=== PATIENT | female | born 1955 ===

== ENCOUNTER 2024-05-22 17:10 | Inpatient (IN) | payer OTHER, SELFPAY ==
--- NOTE | ~2024-05-22 | XR_ITS ---
CLINICAL HISTORY: weakness 1 view chest x-ray Comparison: None Findings: No consolidation or effusion. Normal size heart. No acute fracture. IMPRESSION: 1. No acute findings. This document has been electronically signed by: Opal Kim MD on 05/22/2024 18:18:42
--- NOTE | ~2024-05-22 | CT_ITS ---
EXAMINATION: CT HEAD WITHOUT CONTRAST CLINICAL INFORMATION: Memory impairment. COMPARISON: None available. TECHNIQUE: Contiguous axial imaging was performed from the skull base to vertex without intravenous administration of contrast. This CT examination was performed using dose optimization techniques as appropriate, variously including the following: *Automated exposure control *Adjustment of mA and/or kV according to patient size (this includes techniques or standardized protocols for targeted exams where dose is matched to indication/reason for exam; i.e. extremities or head) *Use of iterative reconstruction technique FINDINGS: There is no evidence of intracranial hemorrhage or extra-axial fluid collection. There is no mass effect, or edema. No CT evidence of acute territorial infarct. Old right basal ganglia infarct, with associated encephalomalacia and ex vacuo dilatation of the right lateral ventricle body and anterior horn. Otherwise ventricles, sulci, and cisterns are normal in size and configuration for patient age. No hydrocephalus. No midline shift. Negative hyperdense MCA sign. Negative insular ribbon sign. Patchy periventricular and deep white matter hypoattenuation is consistent with mild small vessel ischemic changes. Normal pituitary. Globes and orbital contents image normally. No extracranial soft tissue abnormalities. The paranasal sinuses, mastoid air cells, and tympanic cavities are normally aerated. No suspicious bony abnormalities. There are no acute fractures evident. There is hyperostosis frontalis internus. CT/CT head/brain wo IV con IMPRESSION: 1. No acute intracranial abnormality. 2. 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 3. Mild changes of small vessel ischemia. Electronically signed by: Gregory El MD 06/01/2024 04:13 PM EDT
--- NOTE | 2024-05-22 17:15 | ED_ITS ---
HPI - General Adult General Chief complaint: General Medical Stated complaint: unable to ambulate normally Time Seen by Provider: 05/22/24 17:14 Source: patient and EMS Mode of arrival: EMS Limitations: no limitations History of Present Illness ED Provider: Lynne Velazquez PA-C HPI narrative: Patient is a 68 year old assigned female at with a history of CAD, bipolar disorder, neuroma, migraines, stroke with persistent left sided weakness, chronic back pain, and asthma presenting to the emergency department today with weakness and opiate relapse. Patient states that today she stole 2 percocets from her boyfriend who is on them for chronic knee pain. Patient states that she called [facility] and they recommended she come to the hospital to get clean from opiates again. Patient states that she has also had some psychiatric medication adjustments and feel as though she is weaker than usual. Patient denies any dizziness, lightheadedness, abdominal pain, nausea, vomiting, fever, chills, blurry vision, double vision, loss of vision, chest pain, difficulty breathing, shortness of breath, back pain, night sweats, pain with urination, increased urinary frequency, increased urinary urgency, blood in her urine or stool, syncope or a near syncopal episode, recent trauma or falls, bowel incontinence, bladder incontinence, or any other complaints at this time. Relieving factors: none Exacerbating factors: none Associated symptoms: weakness Treatments prior to arrival: none Related Data Home Medications ?Medication ?Instructions ?Recorded ?Confirmed aspirin 81 mg tablet,delayed 81 mg PO DAILY 05/22/24 05/22/24 release hydroxyzine HCl 50 mg tablet 50 mg PO TID anxiety 05/22/24 05/22/24 loperamide 2 mg capsule 4 mg PO DAILY diarrhea 05/22/24 05/22/24 lurasidone 40 mg tablet 40 mg PO BID@0700,1200 05/22/24 05/22/24 [id number] 45 mg-folic 1 cap PO DAILY 05/22/24 05/22/24 acid 800 mcg-vit K 120 mcg capsule (Bariatric Multivitamins) Allergies Allergy/AdvReac Type Severity Reaction Status Date / Time latex [Latex] Allergy Mild THROAT Verified 05/22/24 17:27 CLOSES Sulfa (Sulfonamide Allergy Mild SEVERE Verified 05/22/24 17:27 Antibiotics) HEADACHE, [Sulfa (Sulfonamides)] itching penicillin V Allergy Unknown nauseau,vom Verified 05/22/24 17:27 iting,sob Latex Gloves Allergy Unknown anaphylaxis Uncoded 05/22/24 17:27 Review of Systems 2 Constitutional: Constitutional: Reports no additional constitutional complaints, Denies chills, Denies fever(s), Denies night sweats and Reports weakness Eyes: Eyes: Reports no additional eye complaints, Denies blurry vision, Denies change in vision, Denies diplopia, Denies eye discharge, Denies loss of vision and Denies eye pain ENT: Denies dizziness Cardiovascular: Cardiovascular: Reports no additional cardiovascular complaints, Denies chest pain, Denies lightheadedness, Denies Loss of Consciousness and Denies dyspnea Respiratory: Respiratory: Reports no additional respiratory complaints and Denies dyspnea Gastrointestinal: Gastrointestinal: Reports no additional gastrointestinal complaints, Denies abdominal pain, Denies melena, Denies hematochezia, Denies change in bowel habits and Denies change in stool character Genitourinary: Genitourinary: Denies hematuria, Denies urinary frequency, Denies dysuria, Denies urinary incontinence, Denies urinary hesitancy and Denies urinary urgency Musculoskeletal: Musculoskeletal: Reports no additional musculoskeletal complaints, Reports abnormal gait (per her baseline), Denies numbness and Denies tingling Neurologic: Reports abnormal gait (per her baseline), Denies dizziness, Denies loss of vision, Denies numbness, Denies tingling and Reports weakness Psychiatric: Psychiatric: Reports no additional psychiatric complaints Endocrine: Endocrine: Reports no additional endocrine complaints Hematologic/Lymphatic: Hematologic/Lymphatic: Reports no additional hematologic/lymphatic complaints Allergic/Immunologic: Allergic/Immunologic: Reports no additional allergic/immunologic complaints [facility] Past Medical History Attestation statement: The following information was validated with the patient. Source: old records reviewed and nursing notes reviewed Social History Social History Smoked in Last 30 Days: No Substance Use Type: Former Substance User and Opiates Substance Use Frequency: Recent Binge Advance Directives: No Advance Directives Information Provided: No Physical Exam ED Vital Signs: Vital Signs - 24 hr 05/24/24 10:10 05/24/24 15:14 05/24/24 22:18 Temperature 98 F 98.4 F 98.1 F Pulse Rate 77 79 70 Respiratory Rate 16 16 16 Blood Pressure 105/71 103/61 96/60 Pulse Oximetry 98 98 98 Oxygen Delivery Method Room Air Room Air Room Air BMI result Body Mass Index 27.4 Const General: cooperative, no acute distress, alert and awake Nutritional Appearance: well nourished Orientation/consciousness: patient oriented x3 Limitations: no limitations HENMT Head: Yes normal to inspection and Yes atraumatic Ears: hearing grossly normal bilaterally and external ears normal General nose exam: Normal external nose present, no nasal discharge noted and no epistaxis Face and sinus: Yes normal facial exam, No abrasion and No laceration Mouth: Normal oral and palatal mucosa present, no drooling and no muffled voice Eyes General: appearance normal, both eyes and all related structures Periorbital: periorbital findings normal Eyelids: Yes eyelids normal Conjunctivae: conjunctivae normal Pupils: Equal, round and reactive pupils present EOM: EOMs intact bilaterally Neck Neck: Yes normal visual inspection, Yes full ROM and Yes no lymphadenopathy Chest Chest palpation & inspection: normal inspection of the chest Resp Effort & Inspection: normal respiratory effort and able to speak in complete sentences GI Inspection: Yes normal to inspection Neuro Other: left sided weakness - chronic s/p stroke General: patient oriented x3 and CN's II-XI intact bilaterally Cranial nerves: Yes Equal, round and reactive pupils present Cognition (Neuro): normal cognition Gait exam (Neuro): Other gait observations present (poor gate per her baseline) Extrem General: Yes normal to inspection, Yes full ROM and Yes capillary refill normal Psych Appearance: grossly normal Mental Status: mental status grossly normal Affect: normal affect Attitude: cooperative Thought process: Normal thought process present Thought content: Normal thought content present Insight: Good insight present (Psych) Course Reevaluation(s) Reevaluation #1: 05/23/2024 1229 Lynne Velazquez PA-C ---> Spoke with the covering psychiatrist. Together, we determined that there was not an acute psychiatric need for this patient for them to be consulted on. The patient's medication management would be better managed by the patient's outpatient provider. 05/24/2024 0822 Lynne Velazquez PA-C ---> Patient was awaiting a detox bed search and now it appears case management is following the patient. Observation continues. 05/26/2019 0657 Ninoska GRIFFIN --physician observation continued. Labs reviewed. potassium was low at 3.1, p.o. repletion was given. CARE team and case management working with patient on transitional living/sober home and Case Management searches. We will continue to monitor Medications Administered Generic Name Dose Route Start Last Admin Trade Name Neetu PRN Reason Stop Dose Admin Aspirin 81 mg 05/24/24 09:00 05/24/24 08:47 Aspirin Enteric Coated 81 Mg Tablet.Dr PO 81 mg DAILY ENID Administration Hydroxyzine HCl 50 mg 05/23/24 15:00 05/24/24 20:01 Hydroxyzine Hcl 50 Mg Tablet PO 50 mg TID ENID Administration Ibuprofen 600 mg 05/24/24 19:45 05/25/24 05:14 Ibuprofen 600 Mg Tablet PO 600 mg Q6H PRN Administration Pain, Mild (Pain Scale 1-3) Lurasidone HCl 40 mg 05/24/24 07:00 05/24/24 15:22 Lurasidone Hcl 40 Mg Tablet PO 40 mg BID@0700,1200 ENID Administration Multivitamins/Vitamin C 1 tab 05/24/24 09:00 05/24/24 08:47 Multivitamin Tablet PO 1 tab DAILY ENID Administration Discontinued Medications Generic Name Dose Route Start Last Admin Trade Name Neetu PRN Reason Stop Dose Admin Acetaminophen 975 mg 05/24/24 12:04 05/24/24 12:42 Acetaminophen 325 Mg Tablet PO 05/24/24 12:05 975 mg ONCE ONE Administration Acetaminophen 975 mg 05/24/24 21:36 05/24/24 21:40 Acetaminophen 325 Mg Tablet PO 05/24/24 21:37 975 mg ONCE ONE Administration Lidocaine 1 patch 05/24/24 19:45 05/24/24 20:00 Lidocaine 4 % Patch Adh..Patch TRANSDERMA 05/24/24 19:46 1 patch ONCE ONE Administration Protocol Magnesium Oxide 800 mg 05/22/24 20:08 05/22/24 20:31 Magnesium Oxide 400 Mg Tablet PO 05/22/24 20:09 800 mg ONCE ONE Administration Potassium Chloride 40 meq 05/22/24 19:49 05/22/24 20:31 Potassium Chloride Packet 20 Meq Packet PO 05/22/24 19:50 40 meq ONCE ONE Administration Medical Decision Making Medical Decision Making MDM Narrative: Patient is a 68 year old assigned female at with a history of CAD, bipolar disorder, neuroma, migraines, stroke with persistent left sided weakness, chronic back pain, and asthma presenting to the emergency department today with weakness and opiate relapse. Patient's physical exam was as noted in the physical exam portion of this note. Patient's blood work showed a mildly decreaesd potassium of 3.1 with a mildly elevated WBC count of 11.2. Patient's urine is pending. Patient's EKG showed a prolonged QT. Patient's chest x-ray showed no acute process. Patient was evaluated by the CARE team who stated the patient was actually accepted into a respite program earlier today, placed by [facility], but when she arrived - respite determined she needed a higher level of care because of her ADLs so they recommended she come to the ER. At this time, they recommend case management involvement because she has no risk at this time. CARE team spoke with the patient's boyfriend who states he is uncomfortable taking care of the patient in her worsening gait state though he has successfully secured his percocet medication. I explained my physical exam findings as well as all test results to the patient. I answered all questions asked by the patient. Patient received PO Potassium and given her prolonged QT - PO magnesium. Patient made mention of psychiatric medication adjustments. Given these adjustments, the confusion surrounding them, and her prolonged QT interval, will place a psychiatry consultation for medication review and management. Patient will remain in the department to be evaluated by the physical therapy and case management teams. Patient verbalized agreement and understanding with this treatment plan and remaining in observation for case management and physical therapy evaluations. Differential Diagnosis Differential Diagnoses: The differential diagnosis associated with the presentation includes Physical deconditioning Weakness Difficulty managing home medications Admission/Observation Consideration of admission/observation: Escalation of care including admission/observation considered Patient would have been admitted to the hospital had her work up had any findings where hospital admission was appropriate and her clinical presentation warranted hospital admission. Consult Healthcare Provider Management of the patient was discussed with: Behavioral Health Provider (spoke with the CARE team as noted in the MDM Rationale portion of this note. ) Lab Data [facility] Lab Attestation statement: I reviewed the patient's lab results. My interpretation of these results are in the MDM Rationale portion of this note. 05/22/24 19:13 05/22/24 19:13 Labs: Lab Results 05/22/24 05/22/24 05/22/24 Range/Units 19:12 19:13 21:39 WBC 11.2 H (4.8-10.8) X10*3/uL RBC 5.17 (4.20-5.50) X10*6/uL Hgb 15.6 (12.0-16.0) g/dl Hct 45.0 (37.0-47.0) % MCV 87.0 (80.0-98.0) fL MCH 30.2 (27.0-33.0) pg MCHC 34.7 (31.0-35.0) g/dl RDW 14.5 (11.0-16.0) % Plt Count 236 (160-400) X10*3/uL MPV 9.1 L (9.4-12.3) fL Immature Gran % (Auto) 0.3 (0.0-0.4) % Neut % (Auto) 70.7 (45-73) % Lymph % (Auto) 20.4 (20-40) % [place] % (Auto) 6.5 (2-11) % Eos % (Auto) 1.4 (0-4) % Baso % (Auto) 0.7 (0-2) % Lymph # (Auto) 2.3 (1.2-4.9) X10*3/uL [place] # (Auto) 0.7 (0.1-1.2) X10*3/uL Eos # (Auto) 0.2 (0.0-0.4) X10*3/uL Baso # (Auto) 0.1 (0.0-0.2) X10*3/uL Abs Immat Gran (auto) 0.03 (0.00-0.03) X10*3/uL Absolute Neuts (auto) 7.9 (2.0-8.3) x10*3/uL Absolute Nucleated RBC 0.000 (0.0-0.012) X10*3/uL Nucleated RBC % (auto) 0.0 (0.0-0.2) /100WBC PT 10.4 L (10.9-12.4) SEC INR 0.9 (0.9-1.1) Sodium 140 (135-145) mmol/L Potassium 3.1 L (3.3-5.1) mmol/L Chloride 107 (96-108) mmol/L Carbon Dioxide 22 (22-29) mmol/L Anion Gap 14 (12-20) BUN 14 (9-16) mg/dL Creatinine 0.86 (0.5-1.4) mg/dL Estim Creat Clear Calc 58.1 Estimated GFR > 60 Random Glucose 98 (60-115) mg/dL Calcium 9.4 (8.4-10.2) mg/dL Magnesium 2.1 (1.6-2.6) mg/dL Total Bilirubin 0.7 (0.0-1.0) mg/dL AST 34 H (5-31) U/L ALT 19 (0-31) U/L Alkaline Phosphatase 100 (39-117) U/L Troponin I High Sens 5.0 (<3.5-17.0) ng/L Total Protein 6.8 (6.5-8.0) g/dL Albumin 4.0 (3.5-5.0) g/dL TSH 1.09 (0.32-4.0) uIU/mL Urine Color Dark Yellow Urine Appearance Clear Urine pH 6.5 (5.0-9.0) Ur Specific [place] 1.010 (1.005-1.025) Urine Protein Negative (Neg-Trace) mg/dL Urine Glucose (UA) Negative (Negative) mg/dL Urine Ketones Negative (Negative) mg/dL Urine Blood Negative (Negative) Urine Nitrite Negative (Negative) Ur Leukocyte Esterase Negative (Negative) Urine Opiates Screen (Not Detect) Ur Buprenorphine Scrn (Not Detect) ng/mL Ur Oxycodone Screen (Not Detect) ng/mL Urine Methadone Screen (Not Detect) ng/mL Urine Fentanyl Screen (Not Detect) Ur Barbiturates Screen (Not Detect) Ur Phencyclidine Scrn (Not Detect) Ur Amphetamines Screen (Not Detect) U Benzodiazepines Scrn (Not Detect) Urine Cocaine Screen (Not Detect) U Marijuana (THC) Screen (Not Detect) Influenza Type A (PCR) NEGATIVE (Negative) Influenza Type B (PCR) NEGATIVE (Negative) RSV RNA Qual (PCR) NEGATIVE (Negative) SARS-CoV-2 RNA (RT-PCR) NEGATIVE (Negative) 05/23/24 Range/Units 09:13 WBC (4.8-10.8) X10*3/uL RBC (4.20-5.50) X10*6/uL Hgb (12.0-16.0) g/dl Hct (37.0-47.0) % MCV (80.0-98.0) fL MCH (27.0-33.0) pg MCHC (31.0-35.0) g/dl RDW (11.0-16.0) % Plt Count (160-400) X10*3/uL MPV (9.4-12.3) fL Immature Gran % (Auto) (0.0-0.4) % Neut % (Auto) (45-73) % Lymph % (Auto) (20-40) % [place] % (Auto) (2-11) % Eos % (Auto) (0-4) % Baso % (Auto) (0-2) % Lymph # (Auto) (1.2-4.9) X10*3/uL [place] # (Auto) (0.1-1.2) X10*3/uL Eos # (Auto) (0.0-0.4) X10*3/uL Baso # (Auto) (0.0-0.2) X10*3/uL Abs Immat Gran (auto) (0.00-0.03) X10*3/uL Absolute Neuts (auto) (2.0-8.3) x10*3/uL Absolute Nucleated RBC (0.0-0.012) X10*3/uL Nucleated RBC % (auto) (0.0-0.2) /100WBC PT (10.9-12.4) SEC INR (0.9-1.1) Sodium (135-145) mmol/L Potassium (3.3-5.1) mmol/L Chloride (96-108) mmol/L Carbon Dioxide (22-29) mmol/L Anion Gap (12-20) BUN (9-16) mg/dL Creatinine (0.5-1.4) mg/dL Estim Creat Clear Calc Estimated GFR Random Glucose (60-115) mg/dL Calcium (8.4-10.2) mg/dL Magnesium (1.6-2.6) mg/dL Total Bilirubin (0.0-1.0) mg/dL AST (5-31) U/L ALT (0-31) U/L Alkaline Phosphatase (39-117) U/L Troponin I High Sens (<3.5-17.0) ng/L Total Protein (6.5-8.0) g/dL Albumin (3.5-5.0) g/dL TSH (0.32-4.0) uIU/mL Urine Color Urine Appearance Urine pH (5.0-9.0) Ur Specific [place] (1.005-1.025) Urine Protein (Neg-Trace) mg/dL Urine Glucose (UA) (Negative) mg/dL Urine Ketones (Negative) mg/dL Urine Blood (Negative) Urine Nitrite (Negative) Ur Leukocyte Esterase (Negative) Urine Opiates Screen Not Detected (Not Detect) Ur Buprenorphine Scrn Not Detected (Not Detect) ng/mL Ur Oxycodone Screen Positive H (Not Detect) ng/mL Urine Methadone Screen Not Detected (Not Detect) ng/mL Urine Fentanyl Screen Not Detected (Not Detect) Ur Barbiturates Screen Not Detected (Not Detect) Ur Phencyclidine Scrn Not Detected (Not Detect) Ur Amphetamines Screen Not Detected (Not Detect) U Benzodiazepines Scrn Not Detected (Not Detect) Urine Cocaine Screen Not Detected (Not Detect) U Marijuana (THC) Screen POSITIVE H (Not Detect) Influenza Type A (PCR) (Negative) Influenza Type B (PCR) (Negative) RSV RNA Qual (PCR) (Negative) SARS-CoV-2 RNA (RT-PCR) (Negative) Independent Interpretation I performed an independent interpretation of an: EKG and Plain X-Ray Interpretation: My interpretation is in agreement with the radiologist's impression of this imaging study. L CLINICAL HISTORY: weakness 1 view chest x-ray Comparison: None Findings: No consolidation or effusion. Normal size heart. No acute fracture. IMPRESSION: 1. No acute findings. This document has been electronically signed by: Opal Kim MD on 05/22/2024 18:18:42 Dictated By: Opal Kim MD Signed By: Electronically signed by Opal Kim MD 05/22/24 1819 I independently interpreted this EKG and am in agreement with the below findings: Vent. Rate: 73 BPM Atrial Rate: 73 BPM P-R Int: 168 ms QRS Dur: 84 ms QT Int: 464 ms P-R-T Axes: 62 -37 46 degrees QTcB Int: 511 ms Sinus rhythm with occasional Premature ventricular complexes Left axis deviation Prolonged QT No previous ECGs available DD/ 180 Radiology Impression Discussion of test interpretation with radiology: I have reviewed the radiologist's reading. Independent Historian Clinical information obtained from an independent historian. History obtained from or confirmed by: EMS (EMS provided additional history and confirmed the history provided by the patient. ) Discharge Plan Discharge Clinical Impression: Physical deconditioning, Acute hypokalemia, Prolonged QT interval Patient Disposition: Still a Patient Prescriptions: No Action loperamide 2 mg Capsule 4 mg PO DAILY hydroxyzine HCl 50 mg tablet 50 mg PO TID aspirin [Aspir-81] 81 mg Tablet,Delayed Release (Dr/Ec) 81 mg PO DAILY lurasidone 40 mg Tablet 40 mg PO BID@0700,1200 Rx Instructions: must administer with food (at least 350 calories) Bariatric Multivitamins 45 mg iron- 800 mcg-120 mcg Capsule 1 cap PO DAILY Print Language: Algerian
--- NOTE | 2024-05-22 17:19 | MHC.CARE ---
Pt evalated by [facility] and they are recommending [facility]. Evaluation will be put in the chart when completed.
[2024-05-22 17:23] VITALS: BP 109/63; BP 109/76; PULSE 107; PULSE 79; RESP 16; TEMP 36.7; O2SAT 97; BMI 27.4
[2024-05-22 17:29] VITALS: BP 109/63; PULSE 80; RESP 16; O2SAT 96
--- NOTE | 2024-05-22 17:40 | ECG_ITS ---
Test Reason : WEAKNESS Blood Pressure : */* mmHG Vent. Rate : 73 BPM Atrial Rate : 73 BPM P-R Int : 168 ms QRS Dur : 84 ms QT Int : 464 ms P-R-T Axes : 62 -37 46 degrees QTcB Int : 511 ms Sinus rhythm with occasional Premature ventricular complexes Left axis deviation Prolonged QT Abnormal ECG No previous ECGs available Referred By: Lynne Velazquez Electronically Signed By: Gato Barlow
[2024-05-22 17:43] VITALS: BP 115/67; PULSE 74; RESP 16; O2SAT 97
[2024-05-22 18:00] VITALS: BP 106/67; PULSE 74; RESP 16; O2SAT 97
[2024-05-22 19:18] LABS: MANUAL DIFF FLAG NO
--- NOTE | 2024-05-22 19:18 | PC.NURSE ---
Labs drawn and sent for analysis. Results pending.
[2024-05-22 19:19] LABS: Basophils Absolute Auto 0.1 X10*3/uL (0.0-0.2); Basophils Percent Auto 0.7 % (0-2); Eosinophils Absolute Auto 0.2 X10*3/uL (0.0-0.4); Eosinophils Percent Auto 1.4 % (0-4); Hemoglobin 15.6 g/dl (12.0-16.0); Imm Gran Abs Auto 0.03 X10*3/uL (0.00-0.03); Imm Gran Pct Auto 0.3 % (0.0-0.4); Lymphocytes Absolute Auto 2.3 X10*3/uL (1.2-4.9); Lymphocytes Percent Auto 20.4 % (20-40); Mean Corpuscular HGB Conc 34.7 g/dl (31.0-35.0); Mean Corpuscular Hemoglobin 30.2 pg (27.0-33.0); Mean Platelet Volume 9.1 fL (9.4-12.3); Monocytes Absolute Auto 0.7 X10*3/uL (0.1-1.2); Monocytes Percent Auto 6.5 % (2-11); Neutrophils Absolute Auto 7.9 x10*3/uL (2.0-8.3); Neutrophils Percent Auto 70.7 % (45-73); Platelet Count 236 X10*3/uL (160-400); Red Blood Count 5.17 X10*6/uL (4.20-5.50); Red Cell Distribution Width 14.5 % (11.0-16.0); White Blood Count 11.2 X10*3/uL (4.8-10.8)
[2024-05-22 19:29] LABS: INTERNATIONAL NORM RATIO 0.9 (0.9-1.1); Prothrombin Time 10.4 SEC (10.9-12.4)
[2024-05-22 19:43] LABS: Alanine Aminotransferase 19 U/L (0-31); Alkaline Phosphatase 100 U/L (39-117); Anion Gap 14 (12-20); Aspartate Amino Transferase 34 U/L (5-31); Bilirubin Total 0.7 mg/dL (0.0-1.0); Blood Urea Nitrogen 14 mg/dL (9-16); Calcium 9.4 mg/dL (8.4-10.2); Carbon Dioxide 22 mmol/L (22-29); Chloride 107 mmol/L (96-108); Creatinine Clr Calc Pharmacy 58.1; Estimated Glomerular Filt Rate > 60; Glucose Random 98 mg/dL (60-115); Magnesium 2.1 mg/dL (1.6-2.6); Potassium 3.1 mmol/L (3.3-5.1); Sodium 140 mmol/L (135-145); Total Protein 6.8 g/dL (6.5-8.0)
[2024-05-22 19:56] LABS: Influenza A PCR NEGATIVE (Negative); Influenza B PCR NEGATIVE (Negative); Resp Syncy Virus RNA Qual PCR NEGATIVE (Negative); SARS COV2 PCR INHOUSE NEGATIVE (Negative)
[2024-05-22 19:58] LABS: TSH reflex Free T4 1.09 uIU/mL (0.32-4.0)
[2024-05-22] MEDS: Magnesium Oxide 400 MG TABLET 800 MG PO (20:31)
[2024-05-22] MEDS: Potassium Chloride Packet 20 MEQ PACKET 40 MEQ PO (20:31)
[2024-05-22 21:24] VITALS: BP 115/65; PULSE 73; RESP 14; TEMP 36.8; O2SAT 98
--- NOTE | 2024-05-22 21:30 | PC.NURSE ---
Contacted pharmacy regarding medication reconciliation for this patient. Plan for PT/CM.
--- NOTE | 2024-05-22 21:39 | MHC.CM.ED ---
CM received consult from Lynne HARTMANN. Pending psych, CARE, recovery and PT. No CARE team note. CM met with patient. She was no the phone with her daughter, Sanna Barton. Both patient and daughter expressed concerns regarding feeling that the patient is overmedicated with her anxiety medications. Pt states she feels like a walking Zombie . Daughter tells CM that her mother has a long history or percocet misuse. Pt admits to taking 2 of her boyfriends meds. Pt tells CM she had a suicide attempt in December and was hospitalized at [facility] for 5 days. She denies any other psychiatric admissions and denies and suicidal feelings. She states she cannot ambulate well and has been using a walker since being at [facility]. She tells CM she was at [facility] today, as she has weekly therapy and they felt she should be seen in the ED. PT is pending. Pt normally has her care at the [facility]. The patient has [facility], but states she has no help at home because she lives with her partner. She tells CM she has a HCP at home. HCP#1/partner Roberto Black ([phone]) and HCP #2/daughter Iris Barton ([phone]). Her daughter lives in [place]. She sees a provider at [facility]-Dr. Looney. She does not remember the name. PT and psych is pending. CM spoke with CARE team. They did see the patient. The report is pending. Pt is agreeable to STR in a local facility if recommended by PT. Local Referrals made. CM will follow for safe discharge plan.
[2024-05-22 21:47] LABS: Appearance Urine Clear; Color Urine Dark Yellow; Glucose Urine UA Negative (Negative); Leukocyte Esterase Urine Negative (Negative); Nitrite Urine Negative (Negative); PH 6.5 (5.0-9.0); Urine Blood Negative (Negative); Urine Ketones Negative (Negative); Urine Protein Negative (Neg-Trace)
--- NOTE | 2024-05-22 22:01 | PHA.MEDREC ---
Addendum entered by Dominick Alvarado [facility] 05/22/24 22:08: med rec reviewed Original Note: Pharmacy Consult ? Medication Reconciliation Pharmacy has completed the medication reconciliation. Spoke to patient to confirm med list. Patient had a medbox list with her from [facility] ([place], [facility] [address], [place] [address]) [phone]. Utilized list to confirm med list.
[2024-05-23 03:55] VITALS: BP 111/62; PULSE 65; RESP 18; TEMP 36.5; O2SAT 98
[2024-05-23 06:49] VITALS: BP 103/52; PULSE 69; RESP 14; O2SAT 98
[2024-05-23 08:57] VITALS: BP 103/52; PULSE 69; O2SAT 98
[2024-05-23 09:13] VITALS: BP 111/63; PULSE 78; RESP 18; O2SAT 99
[2024-05-23 09:36] LABS: Amphetamine Screen Urine Not Detected (Not Detect); Barbiturates, Urine Not Detected (Not Detect); Benzodiazepines Screen Urine Not Detected (Not Detect); Buprenorphine Scr Not Detected (Not Detect); Cannabinoid Screen Urine POSITIVE (Not Detect); Cocaine Screen Urine Not Detected (Not Detect); Fentanyl, urine Not Detected (Not Detect); Methadone Screen, Urine Not Detected (Not Detect); Opiate Screen Urine Not Detected (Not Detect); Oxycodone Screen Urine Positive (Not Detect); Phencyclidine Screen Urine Not Detected (Not Detect)
--- NOTE | 2024-05-23 10:23 | MHC.RECOVRN ---
Met with pt in ED15 to discuss recent relapse on opiates. Pt stated she has been stealing her partners Percocet and feels unable to contain and control these impulses. She recently stole 3 pills from his prescription bottle. She denies any other illicit substances use. She states she has a history of bipolar disorder diagnosis. She was not able to recognize any recent stressors related to her relapse. During the assessment, pt is calm, cooperative with questions and support seeking. She denies suicidal or homicidal ideation (no ideation, plan, or intent). She denied experiencing any hallucinations. She wants to be admitted for ATS. She agreed for referrals to be sent on her behalf. Referrals have been sent to the following ATS facilities for review: [facility]. [facility]. [facility]. [facility] Will follow up shortly to these facilities via phone call.
--- NOTE | 2024-05-23 13:26 | MHC.CM.ED ---
Review of STR referrals: no accepting offers at this time. Discussed options with pt: she would like to wait for all local responses before considering a broader referral search. Pt seen by recovery who is also assisting pt with sober transitional living referrals. ED CM to follow
--- NOTE | 2024-05-23 13:53 | MHC.RECOVRN ---
Addendum entered by Britney Orosco RN 05/23/24 13:59: Per staff at [facility], pt does not meet their level of care. Original Note: Per staff at [facility] - no bed available today. Pt has been placed on a wait list. Per staff at [facility] - they do not accept her insurance. Per Giancarlo Minor unit support representative of [facility] - they do not accept her insurance. Per staff at [facility] - pt's referral is still under review
[2024-05-23 14:38] VITALS: BP 115/52; PULSE 79; RESP 16; TEMP 36.8; O2SAT 97
[2024-05-23] MEDS: hydrOXYzine HCL 50 MG TABLET PO ×2 (14:46→20:49)
[2024-05-23 20:45] VITALS: BP 105/61; PULSE 68; RESP 16; TEMP 37.1; O2SAT 96
--- NOTE | 2024-05-23 22:11 | PC.NURSE ---
Addendum entered by Michelle Zavala RN 05/23/24 22:25: PT recommends STR. Original Note: Summary of Plan of Care for report: Patient presented to ED after stealing her significant other's oxycodone. Amory like she could not stop on her own/requesting detox . PMH: CAD, bipolar disorder, neuroma, migraines, stroke with persistent left sided weakness, chronic back pain, and asthma. Psych briefly consulted: NO Acute psychiatric need for this patient for them to be consulted on. The patient's medication management would be better managed by the patient's outpatient provider. CARE team consulted: Placed by [facility] earlier 05/23, needs help w/ ADLs needs higher level of care. PT/CM: no accepting offers at this time. 05/23 Patient 1A to commode w/ walker, needs coaching on how to use walker during every trip. Odd affect. Able to follow commands and answer questions appropriately. VSS.
[2024-05-24] MEDS: Multivitamin TABLET 1 TAB PO (08:47)
[2024-05-24] MEDS: hydrOXYzine HCL 50 MG TABLET PO ×3 (08:47→20:01)
[2024-05-24] MEDS: Aspirin Enteric Coated 81 MG TABLET.DR PO (08:47)
--- NOTE | 2024-05-24 08:49 | PC.NURSE ---
patient a&ox3, oob with stby assist and walker to commode, rr equal/non labored- lungs clear.//diminished, c/o back pain 08/11 will notify provider, call delgado within reach, plan of care ongoing.
[2024-05-24] MEDS: Lurasidone HCl 40 MG TABLET PO ×2 (09:50→15:22)
[2024-05-24 10:10] VITALS: BP 105/71; PULSE 77; RESP 16; TEMP 36.6; O2SAT 98
--- NOTE | 2024-05-24 12:01 | PC.NURSE ---
pt complains of 6/10 lower back pain, no PRN pain meds in [facility] Velazquez notified via [employer] connect
[2024-05-24] MEDS: Acetaminophen 325 MG TABLET 975 MG PO ×2 (12:42→21:40)
--- NOTE | 2024-05-24 14:43 | PC.NURSE ---
called pharmacy requested harsh at 1345- has yet to arrive to dept
[2024-05-24 15:14] VITALS: BP 103/61; PULSE 79; RESP 16; TEMP 36.9; O2SAT 98
--- NOTE | 2024-05-24 15:23 | PC.NURSE ---
re:latuda- med not delivered by pharmacy until 304
--- NOTE | 2024-05-24 15:31 | MHC.CM.ED ---
No STR offers made: search expanded - pt is working with CARE team on transitional living / sober home in addition to CM searches.
[2024-05-24] MEDS: Ibuprofen 600 MG TABLET PO (19:52)
[2024-05-24] MEDS: Lidocaine 4 % Patch ADH..PATCH 1 PATCH TRANSDERMA (20:00)
--- NOTE | 2024-05-24 22:14 | PC.NURSE ---
pt c/o 10/11 lower back pain, per pt APAP has not been effective, reviewed with SHAHBAZ Shelton, lidocaine 4% patch applied to lumbar spine, 600mg IBU, and 975 APAP given. pt repositioned in bed, head of bed lowered. call delgado within reach.
[2024-05-24 22:18] VITALS: BP 96/60; PULSE 70; RESP 16; TEMP 36.7; O2SAT 98
[2024-05-25] MEDS: Ibuprofen 600 MG TABLET PO (05:14)
[2024-05-25] MEDS: Aspirin Enteric Coated 81 MG TABLET.DR PO (08:46)
[2024-05-25] MEDS: Multivitamin TABLET 1 TAB PO (08:47)
[2024-05-25] MEDS: hydrOXYzine HCL 50 MG TABLET PO ×3 (08:47→20:17)
[2024-05-25 09:12] VITALS: BP 104/62; PULSE 76; RESP 18; TEMP 36.7; O2SAT 95
[2024-05-25] MEDS: Lurasidone HCl 40 MG TABLET PO ×2 (09:14→13:45)
--- NOTE | 2024-05-25 10:00 | PC.NURSE ---
pt's daughter Sanna Crooks that lives in [place] is asking that Psych consult and case management would like to talk to them [phone]
--- NOTE | 2024-05-25 10:43 | PC.NURSE ---
report given to brayan madison in overflow
[2024-05-25 10:57] VITALS: BP 114/66; PULSE 69; RESP 18; TEMP 36.8; O2SAT 96
--- NOTE | 2024-05-25 13:04 | MHC.CM.PN ---
Addendum entered by Anna Bustillos RN 05/25/24 13:40: Correction* Patient will need [employer] auth. Addendum entered by Anna Bustillos RN 05/25/24 13:28: Patient enrolled in [employer]. ROSALIE for fuel pilot engineer Shaye for assistance w/ STR placement. No QHS, would need to go on medicaid. Original Note: Patient awaiting STR bed. No bed offers at this time. Referral expanded. CM will continue to follow.
[2024-05-25 14:00] VITALS: BP 104/67; PULSE 72; RESP 15; TEMP 36.1; O2SAT 98
[2024-05-25 19:15] LABS: Anion Gap 12 (12-20); Blood Urea Nitrogen 14 mg/dL (9-16); Calcium 8.7 mg/dL (8.4-10.2); Carbon Dioxide 24 mmol/L (22-29); Chloride 110 mmol/L (96-108); Creatinine Clr Calc Pharmacy 60.9; Estimated Glomerular Filt Rate > 60; Glucose Random 110 mg/dL (60-115); Potassium 3.4 mmol/L (3.3-5.1); Sodium 143 mmol/L (135-145)
[2024-05-25 19:45] VITALS: PULSE 76
--- NOTE | 2024-05-25 20:18 | PC.NURSE ---
medicated per mar.
[2024-05-25 22:00] VITALS: BP 111/75; PULSE 75; RESP 16; TEMP 36.6; O2SAT 96
[2024-05-25] MEDS: LORazepam 1 MG TABLET 2 MG PO (22:29)
--- NOTE | 2024-05-25 22:55 | PC.NURSE ---
Took over care from AKL Decker, pt medicated per may, pt complaining of restless legs notified Timothy Rodney, additional medication ordered and given, pt assisted to bedside commode, her visitor left at 2200. call bed at the bed side.
--- NOTE | 2024-05-26 | ECG_ITS ---
Test Reason : prolonged qt Blood Pressure : */* mmHG Vent. Rate : 72 BPM Atrial Rate : 72 BPM P-R Int : 166 ms QRS Dur : 76 ms QT Int : 442 ms P-R-T Axes : 73 -34 58 degrees QTcB Int : 483 ms Sinus rhythm with occasional Premature ventricular complexes Left axis deviation Low voltage QRS Abnormal ECG When compared with ECG of 22-May-2024 18:07, No significant change was found Referred By: Denisa Erickson Electronically Signed By: LISET WILSON MD
--- NOTE | 2024-05-26 04:49 | PC.NURSE ---
pt sleeping at this time, no of distress.
--- NOTE | 2024-05-26 05:39 | PC.NURSE ---
pt reposition for comfort, pt dry and clean, call delgado at the bedside.
[2024-05-26 05:40] VITALS: BP 105/62; PULSE 69; RESP 18; TEMP 36.4; O2SAT 96
[2024-05-26] MEDS: Aspirin Enteric Coated 81 MG TABLET.DR PO (08:09)
[2024-05-26] MEDS: hydrOXYzine HCL 50 MG TABLET PO (08:09)
[2024-05-26] MEDS: Multivitamin TABLET 1 TAB PO (08:09)
[2024-05-26] MEDS: Lurasidone HCl 40 MG TABLET PO ×2 (08:09→12:37)
--- NOTE | 2024-05-26 11:21 | MHC.CM.PN ---
Bed offer received from [facility], they will need insurance auth, a 1 time contract, and a level 2 PASRR. PASRR completed by this CM, submitted and awaiting approval.
--- NOTE | 2024-05-26 11:45 | ED_ITS ---
HPI - General Adult General Chief complaint: General Medical Stated complaint: unable to ambulate normally Time Seen by Provider: 05/22/24 17:14 Source: patient and EMS Mode of arrival: EMS Limitations: no limitations History of Present Illness Relieving factors: none Exacerbating factors: none Associated symptoms: weakness Treatments prior to arrival: none Related Data Home Medications ?Medication ?Instructions ?Recorded ?Confirmed aspirin 81 mg tablet,delayed 81 mg PO DAILY 05/22/24 05/22/24 release hydroxyzine HCl 50 mg tablet 50 mg PO TID anxiety 05/22/24 05/22/24 loperamide 2 mg capsule 4 mg PO DAILY diarrhea 05/22/24 05/22/24 lurasidone 40 mg tablet 40 mg PO BID@0700,1200 05/22/24 05/22/24 [id number] 45 mg-folic 1 cap PO DAILY 05/22/24 05/22/24 acid 800 mcg-vit K 120 mcg capsule (Bariatric Multivitamins) Allergies Allergy/AdvReac Type Severity Reaction Status Date / Time latex [Latex] Allergy Mild THROAT Verified 05/22/24 17:27 CLOSES Sulfa (Sulfonamide Allergy Mild SEVERE Verified 05/22/24 17:27 Antibiotics) HEADACHE, [Sulfa (Sulfonamides)] itching penicillin V Allergy Unknown nauseau,vom Verified 05/22/24 17:27 iting,sob Latex Gloves Allergy Unknown anaphylaxis Uncoded 05/22/24 17:27 [facility] Social History Social History Smoked in Last 30 Days: No Substance Use Type: Former Substance User and Opiates Substance Use Frequency: Recent Binge Advance Directives: No Advance Directives Information Provided: No Physical Exam ED Vital Signs: Vital Signs - 24 hr 05/25/24 14:00 05/25/24 22:00 05/26/24 05:40 Temperature 96.9 F 97.9 F 97.6 F Pulse Rate 72 75 69 Respiratory Rate 15 16 18 Blood Pressure 104/67 111/75 105/62 Pulse Oximetry 98 96 96 Oxygen Delivery Method Room Air Room Air Room Air BMI result Body Mass Index 27.4 Course Course Course Narrative: 05/26/24 11:45 Anna from CM requesting a psych eval, states this is required for PASRR to get patient placed in a facility. Medications Administered Generic Name Dose Route Start Last Admin Trade Name Lemuelq PRN Reason Stop Dose Admin Aspirin 81 mg 05/24/24 09:00 05/26/24 08:09 Aspirin Enteric Coated 81 Mg Tablet.Dr PO 81 mg DAILY ENID Administration Hydroxyzine HCl 50 mg 05/23/24 15:00 05/26/24 08:09 Hydroxyzine Hcl 50 Mg Tablet PO 50 mg TID ENID Administration Ibuprofen 600 mg 05/24/24 19:45 05/25/24 05:14 Ibuprofen 600 Mg Tablet PO 600 mg Q6H PRN Administration Pain, Mild (Pain Scale 1-3) Lurasidone HCl 40 mg 05/24/24 07:00 05/26/24 08:09 Lurasidone Hcl 40 Mg Tablet PO 40 mg BID@0700,1200 [facility] Administration Multivitamins/Vitamin C 1 tab 05/24/24 09:00 05/26/24 08:09 Multivitamin Tablet PO 1 tab DAILY ENID Administration Discontinued Medications Generic Name Dose Route Start Last Admin Trade Name Lemuelq PRN Reason Stop Dose Admin Acetaminophen 975 mg 05/24/24 12:04 05/24/24 12:42 Acetaminophen 325 Mg Tablet PO 05/24/24 12:05 975 mg ONCE ONE Administration Acetaminophen 975 mg 05/24/24 21:36 05/24/24 21:40 Acetaminophen 325 Mg Tablet PO 05/24/24 21:37 975 mg ONCE ONE Administration Lidocaine 1 patch 05/24/24 19:45 05/24/24 20:00 Lidocaine 4 % Patch Adh..Patch TRANSDERMA 05/24/24 19:46 1 patch ONCE ONE Administration Protocol Lorazepam 2 mg 05/25/24 22:02 05/25/24 22:29 Lorazepam 1 Mg Tablet PO 05/25/24 22:03 2 mg ONCE ONE Administration Magnesium Oxide 800 mg 05/22/24 20:08 05/22/24 20:31 Magnesium Oxide 400 Mg Tablet PO 05/22/24 20:09 800 mg ONCE ONE Administration Potassium Chloride 40 meq 05/22/24 19:49 05/22/24 20:31 Potassium Chloride Packet 20 Meq Packet PO 05/22/24 19:50 40 meq ONCE ONE Administration Medical Decision Making Lab Data 05/22/24 19:13 05/25/24 18:52 Labs: Lab Results 03/21/25 03/21/25 03/21/25 Range/Units 19:12 19:13 21:39 WBC 11.2 H (4.8-10.8) X10*3/uL RBC 5.17 (4.20-5.50) X10*6/uL Hgb 15.6 (12.0-16.0) g/dl Hct 45.0 (37.0-47.0) % MCV 87.0 (80.0-98.0) fL MCH 30.2 (27.0-33.0) pg MCHC 34.7 (31.0-35.0) g/dl RDW 14.5 (11.0-16.0) % Plt Count 236 (160-400) X10*3/uL MPV 9.1 L (9.4-12.3) fL Immature Gran % (Auto) 0.3 (0.0-0.4) % Neut % (Auto) 70.7 (45-73) % Lymph % (Auto) 20.4 (20-40) % Campbell % (Auto) 6.5 (2-11) % Eos % (Auto) 1.4 (0-4) % Baso % (Auto) 0.7 (0-2) % Lymph # (Auto) 2.3 (1.2-4.9) X10*3/uL Campbell # (Auto) 0.7 (0.1-1.2) X10*3/uL Eos # (Auto) 0.2 (0.0-0.4) X10*3/uL Baso # (Auto) 0.1 (0.0-0.2) X10*3/uL Abs Immat Gran (auto) 0.03 (0.00-0.03) X10*3/uL Absolute Neuts (auto) 7.9 (2.0-8.3) x10*3/uL Absolute Nucleated RBC 0.000 (0.0-0.012) X10*3/uL Nucleated RBC % (auto) 0.0 (0.0-0.2) /100WBC PT 10.4 L (10.9-12.4) SEC INR 0.9 (0.9-1.1) Sodium 140 (135-145) mmol/L Potassium 3.1 L (3.3-5.1) mmol/L Chloride 107 (96-108) mmol/L Carbon Dioxide 22 (22-29) mmol/L Anion Gap 14 (12-20) BUN 14 (9-16) mg/dL Creatinine 0.86 (0.5-1.4) mg/dL Estim Creat Clear Calc 58.1 Estimated GFR > 60 Random Glucose 98 (60-115) mg/dL Calcium 9.4 (8.4-10.2) mg/dL Magnesium 2.1 (1.6-2.6) mg/dL Total Bilirubin 0.7 (0.0-1.0) mg/dL AST 34 H (5-31) U/L ALT 19 (0-31) U/L Alkaline Phosphatase 100 (39-117) U/L Troponin I High Sens 5.0 (<3.5-17.0) ng/L Total Protein 6.8 (6.5-8.0) g/dL Albumin 4.0 (3.5-5.0) g/dL TSH 1.09 (0.32-4.0) uIU/mL Urine Color Dark Yellow Urine Appearance Clear Urine pH 6.5 (5.0-9.0) Ur Specific [place] 1.010 (1.005-1.025) Urine Protein Negative (Neg-Trace) mg/dL Urine Glucose (UA) Negative (Negative) mg/dL Urine Ketones Negative (Negative) mg/dL Urine Blood Negative (Negative) Urine Nitrite Negative (Negative) Ur Leukocyte Esterase Negative (Negative) Urine Opiates Screen (Not Detect) Ur Buprenorphine Scrn (Not Detect) ng/mL Ur Oxycodone Screen (Not Detect) ng/mL Urine Methadone Screen (Not Detect) ng/mL Urine Fentanyl Screen (Not Detect) Ur Barbiturates Screen (Not Detect) Ur Phencyclidine Scrn (Not Detect) Ur Amphetamines Screen (Not Detect) U Benzodiazepines Scrn (Not Detect) Urine Cocaine Screen (Not Detect) U Marijuana (THC) Screen (Not Detect) Influenza Type A (PCR) NEGATIVE (Negative) Influenza Type B (PCR) NEGATIVE (Negative) RSV RNA Qual (PCR) NEGATIVE (Negative) SARS-CoV-2 RNA (RT-PCR) NEGATIVE (Negative) 05/23/24 05/25/24 Range/Units 09:13 18:52 WBC (4.8-10.8) X10*3/uL RBC (4.20-5.50) X10*6/uL Hgb (12.0-16.0) g/dl Hct (37.0-47.0) % MCV (80.0-98.0) fL MCH (27.0-33.0) pg MCHC (31.0-35.0) g/dl RDW (11.0-16.0) % Plt Count (160-400) X10*3/uL MPV (9.4-12.3) fL Immature Gran % (Auto) (0.0-0.4) % Neut % (Auto) (45-73) % Lymph % (Auto) (20-40) % Campbell % (Auto) (2-11) % Eos % (Auto) (0-4) % Baso % (Auto) (0-2) % Lymph # (Auto) (1.2-4.9) X10*3/uL Campbell # (Auto) (0.1-1.2) X10*3/uL Eos # (Auto) (0.0-0.4) X10*3/uL Baso # (Auto) (0.0-0.2) X10*3/uL Abs Immat Gran (auto) (0.00-0.03) X10*3/uL Absolute Neuts (auto) (2.0-8.3) x10*3/uL Absolute Nucleated RBC (0.0-0.012) X10*3/uL Nucleated RBC % (auto) (0.0-0.2) /100WBC PT (10.9-12.4) SEC INR (0.9-1.1) Sodium 143 (135-145) mmol/L Potassium 3.4 (3.3-5.1) mmol/L Chloride 110 H (96-108) mmol/L Carbon Dioxide 24 (22-29) mmol/L Anion Gap 12 (12-20) BUN 14 (9-16) mg/dL Creatinine 0.82 (0.5-1.4) mg/dL Estim Creat Clear Calc 60.9 Estimated GFR > 60 Random Glucose 110 (60-115) mg/dL Calcium 8.7 D (8.4-10.2) mg/dL Magnesium (1.6-2.6) mg/dL Total Bilirubin (0.0-1.0) mg/dL AST (5-31) U/L ALT (0-31) U/L Alkaline Phosphatase (39-117) U/L Troponin I High Sens (<3.5-17.0) ng/L Total Protein (6.5-8.0) g/dL Albumin (3.5-5.0) g/dL TSH (0.32-4.0) uIU/mL Urine Color Urine Appearance Urine pH (5.0-9.0) Ur Specific [place] (1.005-1.025) Urine Protein (Neg-Trace) mg/dL Urine Glucose (UA) (Negative) mg/dL Urine Ketones (Negative) mg/dL Urine Blood (Negative) Urine Nitrite (Negative) Ur Leukocyte Esterase (Negative) Urine Opiates Screen Not Detected (Not Detect) Ur Buprenorphine Scrn Not Detected (Not Detect) ng/mL Ur Oxycodone Screen Positive H (Not Detect) ng/mL Urine Methadone Screen Not Detected (Not Detect) ng/mL Urine Fentanyl Screen Not Detected (Not Detect) Ur Barbiturates Screen Not Detected (Not Detect) Ur Phencyclidine Scrn Not Detected (Not Detect) Ur Amphetamines Screen Not Detected (Not Detect) U Benzodiazepines Scrn Not Detected (Not Detect) Urine Cocaine Screen Not Detected (Not Detect) U Marijuana (THC) Screen POSITIVE H (Not Detect) Influenza Type A (PCR) (Negative) Influenza Type B (PCR) (Negative) RSV RNA Qual (PCR) (Negative) SARS-CoV-2 RNA (RT-PCR) (Negative) Discharge Plan Discharge Clinical Impression: Physical deconditioning, Acute hypokalemia, Prolonged QT interval Patient Disposition: Still a Patient Prescriptions: No Action loperamide 2 mg Capsule 4 mg PO DAILY hydroxyzine HCl 50 mg tablet 50 mg PO TID aspirin [Aspir-81] 81 mg Tablet,Delayed Release (Dr/Ec) 81 mg PO DAILY lurasidone 40 mg Tablet 40 mg PO BID@0700,1200 Rx Instructions: must administer with food (at least 350 calories) Bariatric Multivitamins 45 mg iron- 800 mcg-120 mcg Capsule 1 cap PO DAILY Print Language: Kittitian
--- NOTE | 2024-05-26 14:19 | P.CNPS_ITS ---
History of Present Illness Date of Service: 05/26/2024 Chief Complaint: unable to ambulate normally Requesting physician: Anna Brooke Discussed with referring provider: Yes Sources of Information: patient interviewed, chart reviewed and crisis/core team assessment reviewed HPI Narrative: Mrs. Ramos is a 68 year-old woman with hx of Bipolar Disorder, CVA with left side weakness, migraines who initially came to [facility] after she was assessed by [facility] in the community. Apparently, pt had weekly psychotherapy appointment with therapist at [facility] and had reported recent relapsed on oxycodone and had also reported suicidal ideation. She was further assessed by care team, and pt denied any thoughts or intent to harm herself. Pt had also reported that in the past 3 weeks she has been having increase difficulty walking. Per care team assessment, her significant other, Roberto with who she has been for about 20 years denied safety concerns in terms of SI or HI. However, he also reported concern about recent relapsed on oxycodone (partner had recent knee surgery and had left bottle of oxycodone outside- he reported is now locked), and concern about increase difficulty walking for the past 3 weeks. In the ED, utox was positive for oxycodone and THC. CBC with mildly elevated WBC 11, CMP with low potassium 3.1, BUN 14, Cr 0.86, creatinine clearance 58.1, AST 34, ALT 19, TSH 1.09. EKG on sinus rhythm with PVC, QTc 511. Mg 2.1. Repeat EKG on 05/26/2024 Sinus rhythm, Qtc 488ms. Initially psychiatry asked to see pt to clear from acute psychiatric treatment as she had been seen by PT and recommended for STR. Pt seen in ED. She reports she has been having difficulty ambulating, she states my legs are shaking. Visible jerk-like movement that on exam shows bilat spontaneous and inducible myoclonus. She reports this has been going on for the past 3 weeks. She thinks it is getting worse. Upper extremities- no rigidity noted, no cogwheel, milder and only inducible myoclonic movement more on right arm than left one. NO essential tremor noted. No perioral involuntary movement. No Parkinsonism upper or lower. Past Psychiatric History: Inpt: Rosalie Crowe back in 12/2023 after intentional OD on medications OP: CHD Past medication trials: rexulti, abilify, latuda, sumatriptan. Medical Evaluation Reviewed: Yes Diagnostics Vital Signs (24Hr): Vital Signs - 24 hr 05/25/24 22:00 05/26/24 05:40 Temperature 97.9 F 97.6 F Pulse Rate 75 69 Respiratory Rate 16 18 Blood Pressure 111/75 105/62 Pulse Oximetry 96 96 Oxygen Delivery Method Room Air Room Air BMI result Body Mass Index 27.4 Labs 05/22/24 19:13 05/25/24 18:52 Labs: Laboratory Results - last 48 hr 05/25/24 18:52 Sodium 143 Potassium 3.4 Chloride 110 H Carbon Dioxide 24 Anion Gap 12 BUN 14 Creatinine 0.82 Estim Creat Clear Calc 60.9 Estimated GFR > 60 Random Glucose 110 Calcium 8.7 D Mental Status Exam Mental Status Exam Narrative: Appearance: wearing hospital gown, bothered by involuntary movement of both legs. Behavior: cooperative Psychomotor: lower leg involuntary movement Speech: clear, normal rate/rhythm, volume, spontaneous TP: linear TC: worried about involuntary movement and how much they are affecting her gait. Mood: okay Affect: congruent SI: denies HI: denies VH/AH: no overt signs Delusions: none Insight/judgment: fair x 2. Memory/cog: alert, oriented x 3. Medications Medications Current Medications Aspirin (Aspirin Enteric Coated 81 Mg Tablet.) 81 mg PO DAILY [facility] Last Admin: 05/26/24 08:09 Dose: 81 mg Hydroxyzine HCl (Hydroxyzine Hcl 50 Mg Tablet) 50 mg PO TID [facility] Last Admin: 05/26/24 08:09 Dose: 50 mg Ibuprofen (Ibuprofen 600 Mg Tablet) 600 mg PO Q6H PRN PRN Reason: Pain, Mild (Pain Scale 1-3) Last Admin: 05/25/24 05:14 Dose: 600 mg Lurasidone HCl (Lurasidone Hcl 40 Mg Tablet) 40 mg PO BID@0700,1200 [facility] Last Admin: 05/26/24 12:37 Dose: 40 mg Multivitamins/Vitamin C (Multivitamin Tablet) 1 tab PO DAILY [facility] Last Admin: 05/26/24 08:09 Dose: 1 tab Allergies Allergies Allergy/AdvReac Type Severity Reaction Status Date / Time latex [Latex] Allergy Mild THROAT Verified 05/22/24 17:27 CLOSES Sulfa (Sulfonamide Allergy Mild SEVERE Verified 05/22/24 17:27 Antibiotics) HEADACHE, [Sulfa (Sulfonamides)] itching penicillin V Allergy Unknown nauseau,vom Verified 05/22/24 17:27 iting,sob Latex Gloves Allergy Unknown anaphylaxis Uncoded 05/22/24 17:27 Assessment & Plan Assessment & Plan (1) Bipolar disorder with depression: Status: Acute Code(s): F31.9 - Bipolar disorder, unspecified Plan Mrs. Ramos is a 68 year-old woman with hx of Bipolar Disorder, opioid use who recently relapsed on oxycodone. She had expressed SI in context of relapsed but when assessed by care team she had denied any plan or intent. She reported difficulty walking for the past 3 weeks due to involuntary movements of the legs. She is currently on latuda, which was recently further increased. I recommend lowering or stopping it. Recommend neurology consult for movement disorder. I worry STR may not be effective if underlying cause of movement disorder is not addressed. plan consult neurology stop latuda for now. Total time managing care of this patient today ____ minutes.
[2024-05-26 15:03] VITALS: BP 107/61; PULSE 78; RESP 18; TEMP 36.7; O2SAT 98
--- NOTE | 2024-05-26 18:00 | MHC.EDTECH ---
Pt consumed 90% of dinner tray
[2024-05-26 20:16] VITALS: BP 129/69; PULSE 66; RESP 16; TEMP 36.7; O2SAT 97
--- NOTE | 2024-05-26 20:50 | MHC.CM.ED ---
SNF requested psych evaluation. Pt seen by Denisa Erickson NP. Psych consult in draft. Denisa has consulted neurology with Dr. Valente. Denisa feels patient needs further medical work up. Denisa does not feel patient needs PT right now pending neuro. Pt daughter, Sanna ([phone]) called for update. CM explained that psych consult note is pending and that a neurology consult was placed with Dr. Valente. Daughter is very happy with this plan, as she feels there is something wrong. She tells CM that her mother has Common Variable Immunodeficiency disorder and takes some type of immunoglobulin monthly. She tells CM that her mother has not had her infusions for over a month due to insurance issues. The medication is now at her home. She is unsure if she can get the medication in the hospital or if her mother'ss partner should bring the medication into the hospital. Report of above given to Rashaun BARAKAT. CM TIGER text to Denisa Erickson NP regarding above and daughter's contact information given to Denisa. SANTIAGO will follow up tomorrow.
[2024-05-26] MEDS: LORazepam 1 MG TABLET 2 MG PO (21:35)
--- NOTE | 2024-05-27 00:02 | MHC.EDTECH ---
This tech took over care of pt at 2300,rounds completed,pt is sleeping,resp rate WNL,call delgado within reach
[2024-05-27 08:33] VITALS: BP 128/59; PULSE 97; RESP 15; TEMP 36.8; O2SAT 98
[2024-05-27] MEDS: Aspirin Enteric Coated 81 MG TABLET.DR PO (09:18)
[2024-05-27] MEDS: Multivitamin TABLET 1 TAB PO (09:18)
--- NOTE | 2024-05-27 09:50 | MHC.CM.ED ---
Patient remains in ER. Received notification from Brianne of [facility] that she was only waiting for [facility] PASRR Level 1. Alicia from [facility] made aware. Continue to monitor for d/c needs.
--- NOTE | 2024-05-27 12:14 | P.CNNE_ITS ---
History of Present Illness Data of Consult Service Date: 05/27/24 Primary Care Provider: Unknown Physician HPI Reason for consult: Leg myoclonus 68 years old woman with diagnosis of bipolar disorder depression suicidal ideation presently in hospital complain of last few weeks of legs not in her control. She said that there were moving on their own and she was fed up and wanted then to stopped. There was no associated or preceding pain numbness or tingling. Sometime she had similar feeling in her hands. Review of Systems 2 Review of Systems: No significant back pain or bowel bladder difficulties [facility] Social History Social History Smoked in Last 30 Days: No Substance Use Type: Former Substance User and Opiates Substance Use Frequency: Recent Binge Advance Directives: No Advance Directives Information Provided: No Meds Allergies Allergy/AdvReac Type Severity Reaction Status Date / Time latex [Latex] Allergy Mild THROAT Verified 05/22/24 17:27 CLOSES Sulfa (Sulfonamide Allergy Mild SEVERE Verified 05/22/24 17:27 Antibiotics) HEADACHE, [Sulfa (Sulfonamides)] itching penicillin V Allergy Unknown nauseau,vom Verified 05/22/24 17:27 iting,sob Latex Gloves Allergy Unknown anaphylaxis Uncoded 05/22/24 17:27 Active Medications: Current Medications Aspirin (Aspirin Enteric Coated 81 Mg Tablet.) 81 mg PO DAILY [facility] Last Admin: 05/27/24 09:18 Dose: 81 mg Ibuprofen (Ibuprofen 600 Mg Tablet) 600 mg PO Q6H PRN PRN Reason: Pain, Mild (Pain Scale 1-3) Last Admin: 05/25/24 05:14 Dose: 600 mg Lurasidone HCl (Lurasidone Hcl 40 Mg Tablet) 40 mg PO BID@0700,1200 [facility] Last Admin: 05/26/24 12:37 Dose: 40 mg Multivitamins/Vitamin C (Multivitamin Tablet) 1 tab PO DAILY [facility] Last Admin: 05/27/24 09:18 Dose: 1 tab Home Medications ?Medication ?Instructions ?Recorded ?Confirmed ?Last Taken ?Type aspirin 81 mg tablet,delayed 81 mg PO DAILY 05/22/24 05/22/24 05/22/24 History release hydroxyzine HCl 50 mg tablet 50 mg PO TID anxiety 05/22/24 05/22/24 05/22/24 History loperamide 2 mg capsule 4 mg PO DAILY diarrhea 05/22/24 05/22/24 05/22/24 History lurasidone 40 mg tablet 40 mg PO BID@0700,1200 05/22/24 05/22/24 05/22/24 History lkcfkwyp-flkeaaam-hvqf 45 mg-folic 1 cap PO DAILY 05/22/24 05/22/24 05/22/24 History acid 800 mcg-vit K 120 mcg capsule (Bariatric Multivitamins) Physical Exam 2 Vital Signs: Vital Signs: Last Vital Signs Temp 98.2 F 05/27/24 08:33 Pulse 97 05/27/24 08:33 Resp 15 05/27/24 08:33 BP 128/59 L 05/27/24 08:33 Pulse Ox 98 05/27/24 08:33 O2 Del Method Room Air 05/27/24 08:33 BMI result Body Mass Index 27.4 Neuro: Other: She is alert and awake with normal spontaneity of speech fluency comprehension and affect. Hqxr-gr-satuvkwm dyskinetic movements of feet and legs were noted. Both knees have been replaced. Deep tendon reflexes were absent with equivocal plantars. No significant dyskinesia was noted in her hands arms or face. Speech was normal. Results Labs 05/22/24 19:13 05/25/24 18:52 Assessment and Plan (1) Tardive dyskinesia: Status: Acute 68 years old woman who has been exposed to at least 2nd generation antipsychotic medicines complain of constant leg movements for last few weeks. Overall examination is suggestive of dyskinesia and in this case likely tardive dyskinesia. Reduction of antipsychotic medicine or switch to clozapine is recommended. If that would not work, a medicine like Austedo can be tried. Procedures Date of Service Date of Service: 05/27/24
[2024-05-27 15:47] VITALS: BP 127/79; PULSE 87; RESP 18; TEMP 36.7; O2SAT 96
--- NOTE | 2024-05-27 16:13 | P.CNPS_ITS ---
History of Present Illness Date of Service: 05/27/2024 Chief Complaint: unable to ambulate normally Discussed with referring provider: Yes Sources of Information: patient interviewed, chart reviewed and crisis/core team assessment reviewed HPI Narrative: Ms. Ramos is a 68 year-old woman, came to [facility] ED after assessment for suicidality in context of recent relapsed on oxycodone. She had also reported increase difficulty walking, involuntary movements of lower extremity. She was seen by neurology who recommends tx for tardive dyskenisia. She is currently off latuda. Plan initially was to refer patient to OP neurology and follow up with psychiatry. However, pt reports involuntary movements are severe, painful and difficult to tolerate. No SI or HI. No psychosis or delusions. However, medication management for both psychiatric medications and movement disorder may be better and faster managed if patient goes inpatient psych. Past Psychiatric History: Inpt: [facility] back in 12/2023 after intentional OD on medications OP: CHD Past medication trials: rexulti, abilify, latuda, sumatriptan. Diagnostics Vital Signs (24Hr): Vital Signs - 24 hr 05/26/24 20:16 05/27/24 08:33 05/27/24 15:47 Temperature 98.1 F 98.2 F 98.1 F Pulse Rate 66 97 87 Respiratory Rate 16 15 18 Blood Pressure 129/69 128/59 L 127/79 Pulse Oximetry 97 98 96 Oxygen Delivery Method Room Air Room Air Room Air BMI result Body Mass Index 27.4 Labs 05/22/24 19:13 05/25/24 18:52 Labs: Laboratory Results - last 48 hr 05/25/24 18:52 Sodium 143 Potassium 3.4 Chloride 110 H Carbon Dioxide 24 Anion Gap 12 BUN 14 Creatinine 0.82 Estim Creat Clear Calc 60.9 Estimated GFR > 60 Random Glucose 110 Calcium 8.7 D Mental Status Exam Mental Status Exam Narrative: Appearance: wearing hospital gown, bothered by involuntary movement of both legs. Behavior: cooperative Psychomotor: lower legs constant, involuntary movement Speech: clear, normal rate/rhythm, volume, spontaneous TP: linear TC: worried about involuntary movement and how much they are affecting her gait. Mood: it hurts Affect: congruent SI: denies HI: denies VH/AH: no overt signs Delusions: none Insight/judgment: fair x 2. Memory/cog: alert, oriented x 3. Medications Medications Current Medications Aspirin (Aspirin Enteric Coated 81 Mg Tablet.) 81 mg PO DAILY [facility] Last Admin: 05/27/24 09:18 Dose: 81 mg Ibuprofen (Ibuprofen 600 Mg Tablet) 600 mg PO Q6H PRN PRN Reason: Pain, Mild (Pain Scale 1-3) Last Admin: 05/25/24 05:14 Dose: 600 mg Multivitamins/Vitamin C (Multivitamin Tablet) 1 tab PO DAILY [facility] Last Admin: 05/27/24 09:18 Dose: 1 tab Allergies Allergies Allergy/AdvReac Type Severity Reaction Status Date / Time latex [Latex] Allergy Mild THROAT Verified 05/22/24 17:27 CLOSES Sulfa (Sulfonamide Allergy Mild SEVERE Verified 05/22/24 17:27 Antibiotics) HEADACHE, [Sulfa (Sulfonamides)] itching penicillin V Allergy Unknown nauseau,vom Verified 05/22/24 17:27 iting,sob Latex Gloves Allergy Unknown anaphylaxis Uncoded 05/22/24 17:27 Assessment & Plan Assessment & Plan (1) Bipolar disorder with depression: Status: Acute Code(s): F31.9 - Bipolar disorder, unspecified (2) Tardive dyskinesia: Status: Acute Code(s): G24.01 - Drug induced subacute dyskinesia Plan Mrs. Ramos is 68 year-old woman who initially was brought via EMS due to suicidal ideation in context of recent oxycodone relapsed. She also reported 3 week long involuntary movement of both lower extremities which was affecting her ability to walk. She endorses feeling restless, in pain due to constant move of legs. She was seen by neurology who dx with tardive dyskenisia. Given severity of movement disorder symptoms and the fact that medications for underlying psychiatric illness affect movement disorder, it is faster and safer to do these med changes inpatient psych. Pt in agreement to do voluntary psychiatric admission to [facility]. 1. will give one time dose of valium 5mg and amantadine 100mg- reassess effect. 2. care team for bed search Total time managing care of this patient today ____ minutes.
[2024-05-27] MEDS: Ibuprofen 600 MG TABLET PO (17:35)
[2024-05-27] MEDS: amantadine HCL 100 MG CAPSULE PO (17:36)
[2024-05-27] MEDS: diazePAM 5 MG TABLET PO (17:36)
--- NOTE | 2024-05-27 19:06 | MHC.CM.ED ---
Addendum entered by Ebonie Evans 05/27/24 19:11: Pt has [employer] and daughter has concerns that patient needs more help at home. CM to call [employer] liaison Shaye Barajas for home services when patient is discharged. Original Note: Dr. Valente evaluated patient. Concerns for TD and recommends medications changes.Per Denisa Erickson bill peddler, patient will be admitted to [facility] for medication management of Tardive Dyskinesia. Pt is agreeable. Denisa expects bed in [facility] tomorrow. CM called and spoke with daughter, Sanna. Sanna is agreeable with plan of care.
[2024-05-27 21:55] VITALS: BP 97/65; PULSE 64; RESP 16; TEMP 36.6; O2SAT 96
[2024-05-28 06:16] VITALS: BP 100/64; PULSE 67; RESP 16; TEMP 36.6; O2SAT 98
[2024-05-28] MEDS: Aspirin Enteric Coated 81 MG TABLET.DR PO (08:48)
[2024-05-28] MEDS: Ibuprofen 600 MG TABLET PO ×2 (08:49→15:01)
[2024-05-28] MEDS: Multivitamin TABLET 1 TAB PO (08:50)
[2024-05-28 10:05] VITALS: BP 118/65; PULSE 91; RESP 18; TEMP 36.7; O2SAT 95
[2024-05-28] MEDS: diazePAM 5 MG TABLET PO ×2 (10:12→22:08)
--- NOTE | 2024-05-28 13:27 | PC.NURSE ---
ASSUMED CARE OF THIS PT, HAS BEEN C/O ONGOING BILAT LEG PAIN AND RESTLESSNESS. GIVEN IBU AND VALIUM WITH BRIEF RELIEF. HAS BEEN AMBULATING WITH A WALKER, FREQUENTLY GETTING UP WITH MINIMAL ASSISTANCE TO USE COMMODE AND REST IN RECLINER. PT TO BE ADMITTED TO [facility], SEEN BY CARE TEAM. OTHERWISE NO OTHER COMPLAINTS, BEHAVIOURS NON CONCERNING. WCTM.
[2024-05-28 14:00] VITALS: BP 112/61; PULSE 77; RESP 18; TEMP 36.7; O2SAT 97
--- NOTE | 2024-05-28 16:44 | PC.NURSE ---
PT MAKES FREQUENT CALLS FOR ASSISTANCE WITH SHAKING LEGS, PAIN. ABLE TO SIT UP FOR DINNER AND BE REDIRECTED. DISCUSSED SYMPTOMS RESULT OF ANTIPSYCHOTIC MEDICATION MULTIPLE TIMES TODAY, BUT SHE REQUIRES FREQUENT REASSURANCE. WHEN HAVING LENGTHY DISCUSSIONS WITH PATIENT ABOUT OTHER TOPICS THAT SHE FEELS POSITIVELY ABOUT, LEGS NOTED TO BE REMAINING STILL.
[2024-05-28 20:10] VITALS: BP 122/59; PULSE 75; RESP 16; TEMP 36.7; O2SAT 97
--- NOTE | 2024-05-29 05:02 | PC.NURSE ---
Assumed care for patient. Patient c/o feeling restless and asking for medication. Provider ordered valuim po. Pateint slept through night. vital signs stable.
[2024-05-29 06:02] VITALS: BP 119/80; PULSE 67; RESP 16; TEMP 36.7; O2SAT 96
[2024-05-29 07:58] VITALS: BP 127/76; PULSE 82; RESP 17; TEMP 36.8; O2SAT 100
[2024-05-29] MEDS: Aspirin Enteric Coated 81 MG TABLET.DR PO (10:02)
[2024-05-29] MEDS: Multivitamin TABLET 1 TAB PO (10:02)
--- NOTE | 2024-05-29 10:39 | PC.NURSE ---
Pt repeatedly asking for something to stop my legs , referring to resltess leg movements; pt requesting Valium PO; provider made aware; no orders at this time; pt becoming very anxious
[2024-05-29] MEDS: diazePAM 2 MG TABLET PO ×3 (10:50→20:16)
--- NOTE | 2024-05-29 11:19 | MHC.CM.ED ---
Patient remains in ER overflow. Per Denisa, upholstery tech, patient will be admitted to inpatient [facility] at 4pm. Continue to monitor for d/c needs.
[2024-05-29 14:00] VITALS: BP 112/65; PULSE 67; RESP 18; TEMP 36.8; O2SAT 99
--- NOTE | 2024-05-29 16:07 | PC.NURSE ---
Physical therapy at bedside to dejan pt; pt stated she had 10/10 L knee pain and couldn't participate at this time; MD made aware; pt medicated per orders for pain; no swelling/deformities/redness noted to L knee at this time
--- NOTE | 2024-05-29 17:31 | HO.PSYADMNOT ---
HPI Date of Service: 05/29/24 Chief Complaint: movement d/o interaction with psych meds Sources of Information: patient interviewed, chart reviewed and crisis/core team assessment reviewed HPI Subjective Notes: Neil Warning and Conditional Voluntary Narrative: Mrs. Ramos is a 68 year-old woman with hx of Bipolar Disorder who initially came to [facility] ED due to reports of Si in context of recent relapsed on oxycodone. She had denied SI/HI. However, pt has been presenting with dyskinesia of lower extremity apparently for 3-4 months but worsening recently. She was seen by neurology who thought this is tardive dyskinesia. She is off latuda for bipolar disorder. Initially plan was for patient to return back home and work with OP neurology in combination to psychiatrist. However, due to severity of movement disorder symptoms patient agree to voluntarily come to the unit. She has received some doses of diazepam with good effect. On the unit, pt presents with constant movement of both legs from thigh down to feet. When sitting down, patient constantly tapping feet. She reports it is very distressful and painful as she can't stop the movements. She reports difficulty sleeping although movements do stop when she is asleep. She reports feeling anxious. She denies SI/HI. No overt psychosis or delusions noted. She's had one previous psychiatric admission back in 12/2023 after suicide attempt via OD. She denies any prior psychiatric admission. She reports long hx of substance use but has been in remission for some years. She denies alcohol use which was reported by care team. She has been in the ED for 3 days without any signs of alcohol withdrawal symptoms. She does report using cannabis, which she states helps with involuntary movements. Past Psychiatric History: Inpt: [facility] back in 12/2023 after intentional OD on medications OP: [facility] Past medication trials: rexulti, abilify, latuda, sumatriptan. Medical Evaluation Reviewed: Yes [facility] Family History: none Social History: Pt has one daughter. She has a partner for 26 years. Currently not working Substance History: Hx of opioid use but other than using partner's oxycodone in past week she denies any use in several years. Trauma History: not disclosed Diagnostics Vital Signs (24Hr): Vital Signs - 24 hr 05/28/24 20:10 05/29/24 06:02 05/29/24 07:58 Temperature 98.0 F 98.0 F 98.2 F Pulse Rate 75 67 82 Respiratory Rate 16 16 17 Blood Pressure 122/59 L 119/80 127/76 Pulse Oximetry 97 96 100 Oxygen Delivery Method Room Air Room Air Room Air 05/29/24 14:00 Temperature 98.3 F Pulse Rate 67 Respiratory Rate 18 Blood Pressure 112/65 Pulse Oximetry 99 Oxygen Delivery Method Room Air BMI result Body Mass Index 27.4 Labs 05/22/24 19:13 05/29/24 18:24 Meds/Allergies Meds Home Medications ?Medication ?Instructions ?Recorded ?Confirmed ?Type aspirin 81 mg tablet,delayed 81 mg PO DAILY 05/22/24 05/22/24 History release hydroxyzine HCl 50 mg tablet 50 mg PO TID anxiety 05/22/24 05/22/24 History loperamide 2 mg capsule 4 mg PO DAILY diarrhea 05/22/24 05/22/24 History lurasidone 40 mg tablet 40 mg PO BID@0700,1200 05/22/24 05/22/24 History tlvngcmq-bhkjagbm-sydw 45 mg-folic 1 cap PO DAILY 05/22/24 05/22/24 History acid 800 mcg-vit K 120 mcg capsule (Bariatric Multivitamins) Allergies Allergies Allergy/AdvReac Type Severity Reaction Status Date / Time latex [Latex] Allergy Mild THROAT Verified 05/22/24 17:27 CLOSES Sulfa (Sulfonamide Allergy Mild SEVERE Verified 05/22/24 17:27 Antibiotics) HEADACHE, [Sulfa (Sulfonamides)] itching penicillin V Allergy Unknown nauseau,vom Verified 05/22/24 17:27 iting,sob Latex Gloves Allergy Unknown anaphylaxis Uncoded 05/22/24 17:27 Mental Status Exam Mental Status Exam Narrative: Appearance: wearing hospital gown, bothered by involuntary movement of both legs. Behavior: cooperative Psychomotor: lower legs constant, involuntary movement Speech: clear, normal rate/rhythm, volume, spontaneous TP: linear TC: worried about involuntary movement and how much they are affecting her gait. Mood: it hurts Affect: congruent SI: denies HI: denies VH/AH: no overt signs Delusions: none Insight/judgment: fair x 2. Memory/cog: alert, oriented x 3. Assessment & Plan Assessment & Plan (1) Bipolar disorder with depression: Status: Acute Code(s): F31.9 - Bipolar disorder, unspecified (2) Tardive dyskinesia: Status: Acute Code(s): G24.01 - Drug induced subacute dyskinesia Assessment and Plan: Rule out tardive akathisia Plan Ms. Ramos is a 68 year-old woman, came to [facility] ED after assessment for suicidality in context of recent relapsed on oxycodone. She had also reported increase difficulty walking, involuntary movements of lower extremity. She was seen by neurology who recommends tx for tardive dyskenisia. She is currently off latuda. Plan initially was to refer patient to OP neurology and follow up with psychiatry. However, pt reports involuntary movements are severe, painful and difficult to tolerate. No SI or HI. No psychosis or delusions. However, medication management for both psychiatric medications and movement disorder may be better and faster managed if patient goes inpatient psych. PLAN 1. Admit to S1, CV, 15 minutes checks for safety 2. for now will schedule diazeman 2mg po TID as she reports is helps reduced movements. it does makes me wonder if it is more akathisia and if she would benefit from beta sabra. 3. hold off on antipsychotic for now 4. obtain collateral information 5. aftercare planning. Patient educated on: diagnosis, medication risk/benefits and substance abuse Reason for continued inpatient stay Substantial Risk for: inability to function Statement Statement: I have reviewed the history and physical and performed a pertinent examination on my patient. No changes have occurred unless specified. If the History and Physical was not performed prior to admission, the Hospitalist's service will be consulted for completing the admission physical. Time Spent With Patient Time: Total time managing care of this patient today ____ minutes.
[2024-05-29 18:04] VITALS: BMI 26.6
--- NOTE | 2024-05-29 18:39 | PC.ADMIT ---
Pt arrived on the unit at 1710 via wheelchair, from [facility]. She is here on a CV and admitting dx is Bipolar d/o. She is also experiencing an uncontrolled movement in her right leg. Pt also states that she stole Percocet from her boyfriend. She is A&Ox4. Pt reports that she was discharged from [facility] about 3 weeks ago , after feeling suicidal. Pt currently denies any suicidal thoughts, and reports thats he will tell staff should this arise on the unit. VSS. Skin check didn't reveal any concerns. Pt appears and states that she is very anxious and scared to be here . Toxicology screening revealed THC, which pt states that she uses daily, and opiods d/t the Percocet. Pt reports that the 50 pounds that she has lost over the past month is due to being on Ozempic. Pt ambulates with a walker, and appears steady for the most part, however, she states that she fell a few weeks ago, and other times before that as well. PT consult placed.
[2024-05-29 18:48] LABS: Alanine Aminotransferase 28 U/L (0-31); Albumin Level 3.8 g/dL (3.5-5.0); Alkaline Phosphatase 85 U/L (39-117); Anion Gap 11 (12-20); Aspartate Amino Transferase 49 U/L (5-31); Bilirubin Total 0.7 mg/dL (0.0-1.0); Blood Urea Nitrogen 13 mg/dL (9-16); Calcium 9.6 mg/dL (8.4-10.2); Carbon Dioxide 26 mmol/L (22-29); Chloride 109 mmol/L (96-108); Creatinine Clr Calc Pharmacy 61.6; Estimated Glomerular Filt Rate > 60; Glucose Random 124 mg/dL (60-115); Potassium 3.7 mmol/L (3.3-5.1); Sodium 142 mmol/L (135-145)
[2024-05-29 20:00] VITALS: BP 127/71; PULSE 64; RESP 18; TEMP 36; O2SAT 97
[2024-05-29] MEDS: Acetaminophen 325 MG TABLET 650 MG PO (20:16)
--- NOTE | 2024-05-30 07:48 | HO.PSYCHPN ---
Subjective Subjective Reason For Visit: movement d/o interaction with psych meds Diagnostics Vital Signs (24Hr): Vital Signs - 24 hr 05/29/24 07:58 05/29/24 14:00 05/29/24 20:00 Temperature 98.2 F 98.3 F 96.8 F Pulse Rate 82 67 64 Respiratory Rate 17 18 18 Blood Pressure 127/76 112/65 127/71 Pulse Oximetry 100 99 97 Oxygen Delivery Method Room Air Room Air Room Air BMI result Body Mass Index 26.6 Labs 05/22/24 19:13 05/29/24 18:24 Labs: Laboratory Results - last 48 hr 05/29/24 18:24 Sodium 142 Potassium 3.7 Chloride 109 H Carbon Dioxide 26 Anion Gap 11 L BUN 13 Creatinine 0.80 Estim Creat Clear Calc 61.6 Estimated GFR > 60 Random Glucose 124 H Calcium 9.6 D Total Bilirubin 0.7 AST 49 H ALT 28 Alkaline Phosphatase 85 Total Protein 6.0 L Albumin 3.8 Medications Medications Current Medications Acetaminophen (Acetaminophen 325 Mg Tablet) 650 mg PO Q6H PRN PRN Reason: Headache/Pain, Scale 1-10 Last Admin: 05/29/24 20:16 Dose: 650 mg Al Hydroxide/Mg Hydroxide (Magnesium Hydrox/Alum Hydrox 30 Ml Oral.Susp) 30 ml PO Q6H PRN PRN Reason: Heartburn/Nausea Aspirin (Aspirin Enteric Coated 81 Mg Tablet.Dr) 81 mg PO DAILY [facility] Last Admin: 05/29/24 10:02 Dose: 81 mg Diazepam (Diazepam 2 Mg Tablet) 2 mg PO TID [facility] Last Admin: 05/29/24 20:16 Dose: 2 mg Ibuprofen (Ibuprofen 600 Mg Tablet) 600 mg PO Q6H PRN PRN Reason: Pain, Mild (Pain Scale 1-3) Last Admin: 05/28/24 15:01 Dose: 600 mg Magnesium Hydroxide (Milk Of Magnesia 30 Ml Oral.Susp) 30 ml PO DAILY PRN PRN Reason: Constipation Multivitamins/Vitamin C (Multivitamin Tablet) 1 tab PO DAILY [facility] Last Admin: 05/29/24 10:02 Dose: 1 tab Trazodone HCl (Trazodone Hcl 50 Mg Tablet) 50 mg PO BEDTIME MRX1 PRN PRN Reason: Insomnia Allergies Allergies Allergy/AdvReac Type Severity Reaction Status Date / Time latex [Latex] Allergy Mild THROAT Verified 03/21/25 17:27 CLOSES Sulfa (Sulfonamide Allergy Mild SEVERE Verified 05/22/24 17:27 Antibiotics) HEADACHE, [Sulfa (Sulfonamides)] itching penicillin V Allergy Unknown nauseau,vom Verified 05/22/24 17:27 iting,sob Latex Gloves Allergy Unknown anaphylaxis Uncoded 05/22/24 17:27 Assessment & Plan Assessment & Plan (1) Bipolar disorder with depression: Status: Acute Code(s): F31.9 - Bipolar disorder, unspecified (2) Tardive dyskinesia: Status: Acute Code(s): G24.01 - Drug induced subacute dyskinesia Plan Mrs. Ramos is 68 year-old woman who initially was brought via EMS due to suicidal ideation in context of recent oxycodone relapsed. She also reported 3 week long involuntary movement of both lower extremities which was affecting her ability to walk. She endorses feeling restless, in pain due to constant move of legs. She was seen by neurology who dx with tardive dyskenisia. Given severity of movement disorder symptoms and the fact that medications for underlying psychiatric illness affect movement disorder, it is faster and safer to do these med changes inpatient psych. Pt in agreement to do voluntary psychiatric admission to [facility] psych. 1. will give one time dose of valium 5mg and amantadine 100mg- reassess effect. 2. care team for bed search Time Spent With Patient Time: Total time managing care of this patient today ____ minutes.
[2024-05-30 07:57] VITALS: BP 109/70; PULSE 112; RESP 16; TEMP 36.4; O2SAT 97
[2024-05-30] MEDS: Multivitamin TABLET 1 TAB PO (08:08)
[2024-05-30] MEDS: diazePAM 2 MG TABLET PO ×3 (08:08→20:42)
[2024-05-30] MEDS: Aspirin Enteric Coated 81 MG TABLET.DR PO (08:08)
--- NOTE | 2024-05-30 11:26 | PC.NURSE ---
She attended morning group this morning
--- NOTE | 2024-05-30 16:17 | P.PNPSI_ITS ---
Subjective Subjective Date of Service: 05/30/24 Reason For Visit: movement d/o interaction with psych meds Interim History: c/o constant body movements, Dxed as TD. admitted yesterday. per staff, denies SI. THC POS utox. oxycodone POS utox (Rxed). PT consult for falls. Mental Status Exam Mental Status Exam Narrative: Appearance: wearing hospital gown, bothered by involuntary movement of both legs. Behavior: cooperative Psychomotor: lower legs constant, involuntary movement Speech: clear, normal rate/rhythm, volume, spontaneous TP: linear TC: worried about involuntary movement and how much they are affecting her gait. Mood: it hurts Affect: congruent SI: denies HI: denies VH/AH: no overt signs Delusions: none Insight/judgment: fair x 2. Memory/cog: alert, oriented x 3. Diagnostics Vital Signs (24Hr): Vital Signs - 24 hr 05/29/24 20:00 05/30/24 07:57 Temperature 96.8 F 97.5 F Pulse Rate 64 112 H Respiratory Rate 18 16 Blood Pressure 127/71 109/70 Pulse Oximetry 97 97 Oxygen Delivery Method Room Air Room Air BMI result Body Mass Index 26.6 Labs 05/22/24 19:13 05/29/24 18:24 Labs: Laboratory Results - last 48 hr 05/29/24 18:24 Sodium 142 Potassium 3.7 Chloride 109 H Carbon Dioxide 26 Anion Gap 11 L BUN 13 Creatinine 0.80 Estim Creat Clear Calc 61.6 Estimated GFR > 60 Random Glucose 124 H Calcium 9.6 D Total Bilirubin 0.7 AST 49 H ALT 28 Alkaline Phosphatase 85 Total Protein 6.0 L Albumin 3.8 Medications Medications Current Medications Acetaminophen (Acetaminophen 325 Mg Tablet) 650 mg PO Q6H PRN PRN Reason: Headache/Pain, Scale 1-10 Last Admin: 05/29/24 20:16 Dose: 650 mg Al Hydroxide/Mg Hydroxide (Magnesium Hydrox/Alum Hydrox 30 Ml Oral.Susp) 30 ml PO Q6H PRN PRN Reason: Heartburn/Nausea Aspirin (Aspirin Enteric Coated 81 Mg Tablet.Dr) 81 mg PO DAILY [facility] Last Admin: 05/30/24 08:08 Dose: 81 mg Diazepam (Diazepam 2 Mg Tablet) 2 mg PO TID [facility] Last Admin: 05/30/24 14:41 Dose: 2 mg Ibuprofen (Ibuprofen 600 Mg Tablet) 600 mg PO Q6H PRN PRN Reason: Pain, Mild (Pain Scale 1-3) Last Admin: 05/28/24 15:01 Dose: 600 mg Magnesium Hydroxide (Milk Of Magnesia 30 Ml Oral.Susp) 30 ml PO DAILY PRN PRN Reason: Constipation Multivitamins/Vitamin C (Multivitamin Tablet) 1 tab PO DAILY [facility] Last Admin: 05/30/24 08:08 Dose: 1 tab Trazodone HCl (Trazodone Hcl 50 Mg Tablet) 50 mg PO BEDTIME MRX1 PRN PRN Reason: Insomnia Allergies Allergies Allergy/AdvReac Type Severity Reaction Status Date / Time latex [Latex] Allergy Mild THROAT Verified 05/22/24 17:27 CLOSES Sulfa (Sulfonamide Allergy Mild SEVERE Verified 05/22/24 17:27 Antibiotics) HEADACHE, [Sulfa (Sulfonamides)] itching penicillin V Allergy Unknown nauseau,vom Verified 05/22/24 17:27 iting,sob Latex Gloves Allergy Unknown anaphylaxis Uncoded 05/22/24 17:27 Assessment & Plan Assessment & Plan (1) Bipolar disorder with depression: Status: Acute Code(s): F31.9 - Bipolar disorder, unspecified (2) Tardive dyskinesia: Status: Acute Code(s): G24.01 - Drug induced subacute dyskinesia Assessment and Plan: Rule out tardive akathisia Plan Ms. Ramos is a 68 year-old woman, came to [facility] after assessment for suicidality in context of recent relapsed on oxycodone. She had also reported increase difficulty walking, involuntary movements of lower extremity. She was seen by neurology who recommends tx for tardive dyskenisia. She is currently off latuda. Plan initially was to refer patient to OP neurology and follow up with psychiatry. However, pt reports involuntary movements are severe, painful and difficult to tolerate. No SI or HI. No psychosis or delusions. However, medication management for both psychiatric medications and movement disorder may be better and faster managed if patient goes inpatient psych. PLAN 1. Admit to S1, CV, 15 minutes checks for safety 2. for now will schedule diazepam 2mg po TID as she reports is helps reduced movements. it does makes me wonder if it is more akathisia and if she would benefit from beta sabra. 3. hold off on antipsychotic for now 4. obtain collateral information 5. aftercare planning. 3/29: movements continue. continue current mgmt for now. Reason for continued inpatient stay Substantial Risk for: harm to self and inability to function Time Spent With Patient Time: Total time managing care of this patient today ____ minutes.
[2024-05-30 20:00] VITALS: BP 116/71; PULSE 80; RESP 16; TEMP 36.6; O2SAT 98
[2024-05-30] MEDS: Acetaminophen 325 MG TABLET 650 MG PO (22:17)
[2024-05-31 08:00] VITALS: BP 123/74; PULSE 107; RESP 16; TEMP 36.4; O2SAT 100
[2024-05-31] MEDS: Multivitamin TABLET 1 TAB PO (08:05)
[2024-05-31] MEDS: diazePAM 2 MG TABLET PO (08:05)
[2024-05-31] MEDS: Aspirin Enteric Coated 81 MG TABLET.DR PO (08:05)
[2024-05-31] MEDS: diazePAM 2 MG TABLET 3 MG PO ×2 (14:24→20:11)
--- NOTE | 2024-05-31 16:08 | P.PNPSI_ITS ---
Subjective Subjective Date of Service: 05/31/24 Reason For Visit: movement d/o interaction with psych meds Interim History: reporting ongoing shaking of the legs, says it is painful, asking for anything to make it stop, even if just for a little while. says valium has helped a little. agrees to slight increase in valium dosing.. per staff, anxious. c/o shaking. some director of staff development reporting when she is unaware she is being observed she stops shaking. Mental Status Exam Mental Status Exam Narrative: Appearance: wearing scrub pants, bothered by involuntary movement of both legs. Behavior: cooperative Psychomotor: lower legs constant, involuntary movement Speech: clear, normal rate/rhythm, volume, spontaneous TP: linear TC: worried about involuntary movement and how much they are affecting her gait. Mood: it hurts Affect: congruent SI: denies HI: denies VH/AH: no overt signs Delusions: none Insight/judgment: fair x 2. Memory/cog: alert, oriented x 3. Diagnostics Vital Signs (24Hr): Vital Signs - 24 hr 05/30/24 20:00 05/31/24 08:00 Temperature 97.9 F 97.6 F Pulse Rate 80 107 H Respiratory Rate 16 16 Blood Pressure 116/71 123/74 Pulse Oximetry 98 100 Oxygen Delivery Method Room Air BMI result Body Mass Index 26.6 Labs 05/22/24 19:13 05/29/24 18:24 Labs: Laboratory Results - last 48 hr 05/29/24 18:24 Sodium 142 Potassium 3.7 Chloride 109 H Carbon Dioxide 26 Anion Gap 11 L BUN 13 Creatinine 0.80 Estim Creat Clear Calc 61.6 Estimated GFR > 60 Random Glucose 124 H Calcium 9.6 D Total Bilirubin 0.7 AST 49 H ALT 28 Alkaline Phosphatase 85 Total Protein 6.0 L Albumin 3.8 Medications Medications Current Medications Acetaminophen (Acetaminophen 325 Mg Tablet) 650 mg PO Q6H PRN PRN Reason: Headache/Pain, Scale 1-10 Last Admin: 05/30/24 22:17 Dose: 650 mg Al Hydroxide/Mg Hydroxide (Magnesium Hydrox/Alum Hydrox 30 Ml Oral.Susp) 30 ml PO Q6H PRN PRN Reason: Heartburn/Nausea Aspirin (Aspirin Enteric Coated 81 Mg Tablet.) 81 mg PO DAILY [facility] Last Admin: 05/31/24 08:05 Dose: 81 mg Diazepam (Diazepam 2 Mg Tablet) 3 mg PO TID [facility] Last Admin: 05/31/24 14:24 Dose: 3 mg Ibuprofen (Ibuprofen 600 Mg Tablet) 600 mg PO Q6H PRN PRN Reason: Pain, Mild (Pain Scale 1-3) Last Admin: 05/28/24 15:01 Dose: 600 mg Magnesium Hydroxide (Milk Of Magnesia 30 Ml Oral.Susp) 30 ml PO DAILY PRN PRN Reason: Constipation Multivitamins/Vitamin C (Multivitamin Tablet) 1 tab PO DAILY [facility] Last Admin: 05/31/24 08:05 Dose: 1 tab Trazodone HCl (Trazodone Hcl 50 Mg Tablet) 50 mg PO BEDTIME MRX1 PRN PRN Reason: Insomnia Allergies Allergies Allergy/AdvReac Type Severity Reaction Status Date / Time latex [Latex] Allergy Mild THROAT Verified 05/22/24 17:27 CLOSES Sulfa (Sulfonamide Allergy Mild SEVERE Verified 05/22/24 17:27 Antibiotics) HEADACHE, [Sulfa (Sulfonamides)] itching penicillin V Allergy Unknown nauseau,vom Verified 05/22/24 17:27 iting,sob Latex Gloves Allergy Unknown anaphylaxis Uncoded 05/22/24 17:27 Assessment & Plan Assessment & Plan (1) Bipolar disorder with depression: Status: Acute Code(s): F31.9 - Bipolar disorder, unspecified (2) Tardive dyskinesia: Status: Acute Code(s): G24.01 - Drug induced subacute dyskinesia Assessment and Plan: Rule out tardive akathisia Plan Ms. Ramos is a 68 year-old woman, came to [facility] after assessment for suicidality in context of recent relapsed on oxycodone. She had also reported increase difficulty walking, involuntary movements of lower extremity. She was seen by neurology who recommends tx for tardive dyskenisia. She is currently off latuda. Plan initially was to refer patient to OP neurology and follow up with psychiatry. However, pt reports involuntary movements are severe, painful and difficult to tolerate. No SI or HI. No psychosis or delusions. However, medication management for both psychiatric medications and movement disorder may be better and faster managed if patient goes inpatient psych. PLAN 1. Admit to S1, CV, 15 minutes checks for safety 2. for now will schedule diazepam 2mg po TID as she reports is helps reduced movements. it does makes me wonder if it is more akathisia and if she would benefit from beta sabra. 3. hold off on antipsychotic for now 4. obtain collateral information 5. aftercare planning. 05/30: movements continue. continue current mgmt for now. 05/31: n apparent change in movement, pt reports mild improvement with valium, asking for more. valium increased from 2 TID to 3 TID. otherwise continue current mgmt. Reason for continued inpatient stay Substantial Risk for: inability to function Time Spent With Patient Time: Total time managing care of this patient today ____ minutes.
[2024-05-31 20:00] VITALS: BP 119/67; PULSE 100; RESP 16; TEMP 36.7; O2SAT 97
[2024-06-01 08:08] VITALS: BP 112/63; PULSE 107; RESP 16; TEMP 36.7; O2SAT 96
[2024-06-01] MEDS: Multivitamin TABLET 1 TAB PO (08:10)
[2024-06-01] MEDS: Aspirin Enteric Coated 81 MG TABLET.DR PO (08:10)
[2024-06-01] MEDS: diazePAM 2 MG TABLET 3 MG PO ×3 (08:10→20:49)
--- NOTE | 2024-06-01 09:17 | P.PNPSI_ITS ---
Subjective Subjective Date of Service: 06/01/24 Reason For Visit: movement d/o interaction with psych meds Subjective Notes: Conditional Voluntary Interim History: Pt slept through the night. She does report significant improvement with diazepam. We discussed adding medication for mood. Spoke with her daugther Sanna who reports no hx of psychosis or delusions. Lindy does report hx of trauma. Megha also had MOCA , ACL 3.8--> provided information about underlying cognitive impairments to daughter and to Megha and her partner. Will start remeron for depression- given that no hx of psychosis or delusions. Review of Systems Review of Systems No significant back pain or bowel bladder difficulties Constitutional: Reports no additional constitutional complaints, Denies chills, Denies fever(s), Denies night sweats and Reports weakness Eyes: Reports no additional eye complaints, Denies blurry vision, Denies change in vision, Denies diplopia, Denies eye discharge, Denies loss of vision and Denies eye pain Denies dizziness Cardiovascular: Reports no additional cardiovascular complaints, Denies chest pain, Denies lightheadedness, Denies Loss of Consciousness and Denies dyspnea Respiratory: Reports no additional respiratory complaints and Denies dyspnea Gastrointestinal: Reports no additional gastrointestinal complaints, Denies abdominal pain, Denies melena, Denies hematochezia, Denies change in bowel habits and Denies change in stool character Musculoskeletal: Reports no additional musculoskeletal complaints, Reports abnormal gait (per her baseline), Denies numbness and Denies tingling Reports abnormal gait (per her baseline), Denies dizziness, Denies loss of vision, Denies numbness, Denies tingling and Reports weakness Psychiatric: Reports no additional psychiatric complaints Endocrine: Reports no additional endocrine complaints Hematologic/Lymphatic: Reports no additional hematologic/lymphatic complaints Allergic/Immunologic: Reports no additional allergic/immunologic complaints Mental Status Exam Mental Status Exam Narrative: Appearance: wearing scrub pants, bothered by involuntary movement of both legs. Behavior: cooperative Psychomotor: lower legs constant, involuntary movement Speech: clear, normal rate/rhythm, volume, spontaneous TP: linear TC: worried about involuntary movement and how much they are affecting her gait. Mood: it hurts Affect: congruent SI: denies HI: denies VH/AH: no overt signs Delusions: none Insight/judgment: fair x 2. Memory/cog: alert, oriented x 3. Diagnostics Vital Signs (24Hr): Vital Signs - 24 hr 05/31/24 20:00 06/01/24 08:08 Temperature 98.1 F 98.0 F Pulse Rate 100 107 H Respiratory Rate 16 16 Blood Pressure 119/67 112/63 Pulse Oximetry 97 96 Oxygen Delivery Method Room Air Room Air BMI result Body Mass Index 26.6 Labs 05/22/24 19:13 05/29/24 18:24 Medications Medications Current Medications Acetaminophen (Acetaminophen 325 Mg Tablet) 650 mg PO Q6H PRN PRN Reason: Headache/Pain, Scale 1-10 Last Admin: 05/30/24 22:17 Dose: 650 mg Al Hydroxide/Mg Hydroxide (Magnesium Hydrox/Alum Hydrox 30 Ml Oral.Susp) 30 ml PO Q6H PRN PRN Reason: Heartburn/Nausea Aspirin (Aspirin Enteric Coated 81 Mg Tablet.Dr) 81 mg PO DAILY [facility] Last Admin: 06/01/24 08:10 Dose: 81 mg Diazepam (Diazepam 2 Mg Tablet) 3 mg PO TID [facility] Last Admin: 06/01/24 08:10 Dose: 3 mg Ibuprofen (Ibuprofen 600 Mg Tablet) 600 mg PO Q6H PRN PRN Reason: Pain, Mild (Pain Scale 1-3) Last Admin: 05/28/24 15:01 Dose: 600 mg Magnesium Hydroxide (Milk Of Magnesia 30 Ml Oral.Susp) 30 ml PO DAILY PRN PRN Reason: Constipation Multivitamins/Vitamin C (Multivitamin Tablet) 1 tab PO DAILY [facility] Last Admin: 06/01/24 08:10 Dose: 1 tab Trazodone HCl (Trazodone Hcl 50 Mg Tablet) 50 mg PO BEDTIME MRX1 PRN PRN Reason: Insomnia Allergies Allergies Allergy/AdvReac Type Severity Reaction Status Date / Time latex [Latex] Allergy Mild THROAT Verified 05/22/24 17:27 CLOSES Sulfa (Sulfonamide Allergy Mild SEVERE Verified 05/22/24 17:27 Antibiotics) HEADACHE, [Sulfa (Sulfonamides)] itching penicillin V Allergy Unknown nauseau,vom Verified 05/22/24 17:27 iting,sob Latex Gloves Allergy Unknown anaphylaxis Uncoded 05/22/24 17:27 Assessment & Plan Assessment & Plan (1) Bipolar disorder with depression: Status: Acute Code(s): F31.9 - Bipolar disorder, unspecified (2) Tardive dyskinesia: Status: Acute Code(s): G24.01 - Drug induced subacute dyskinesia Assessment and Plan: Rule out tardive akathisia Plan Ms. Ramos is a 68 year-old woman, came to [facility] after assessment for suicidality in context of recent relapsed on oxycodone. She had also reported increase difficulty walking, involuntary movements of lower extremity. She was seen by neurology who recommends tx for tardive dyskenisia. She is currently off latuda. Plan initially was to refer patient to OP neurology and follow up with psychiatry. However, pt reports involuntary movements are severe, painful and difficult to tolerate. No SI or HI. No psychosis or delusions. However, medication management for both psychiatric medications and movement disorder may be better and faster managed if patient goes inpatient psych. PLAN 06/01- Will start remeron for depression- given that no hx of psychosis or delusions. continue diazepam 3mg po TID. Add propanolol 5mg po TID. head CT- given cognitive impairments. Reason for continued inpatient stay Substantial Risk for: inability to function Time Spent With Patient Time: Total time managing care of this patient today ____ minutes.
[2024-06-01 14:50] VITALS: BP 113/78; PULSE 109
[2024-06-01] MEDS: Propranolol HCL 10 MG TABLET 5 MG PO ×2 (14:54→20:50)
[2024-06-01 20:00] VITALS: BP 137/75; PULSE 76; RESP 18; TEMP 36.5; O2SAT 97
[2024-06-01 20:50] VITALS: BP 137/75; PULSE 76
[2024-06-01] MEDS: Mirtazapine 15 MG TABLET PO (20:50)
[2024-06-02 08:00] VITALS: BP 108/68; PULSE 83; RESP 15; TEMP 36.4; O2SAT 98
[2024-06-02 08:03] VITALS: BP 108/68; PULSE 83
[2024-06-02] MEDS: Propranolol HCL 10 MG TABLET 5 MG PO ×3 (08:03→20:37)
[2024-06-02] MEDS: Ascorbic Acid 250 MG TABLET PO (08:03)
[2024-06-02] MEDS: Multivitamin TABLET 1 TAB PO (08:03)
[2024-06-02] MEDS: Aspirin Enteric Coated 81 MG TABLET.DR PO (08:03)
[2024-06-02] MEDS: Ferrous Sulfate 300 MG/5 ML LIQUID PO (08:04)
[2024-06-02] MEDS: diazePAM 2 MG TABLET 3 MG PO ×3 (08:27→21:59)
--- NOTE | 2024-06-02 09:24 | HO.PSYCHPN ---
Subjective Subjective Date of Service: 06/02/24 Reason For Visit: movement d/o interaction with psych meds Subjective Notes: Conditional Voluntary Interim History: Pt slept through the night. Pt reports much less movement of legs and feels much calmer. She denies SI/HI. She is sleeping through the night. No psychosis or delusions. She has been visible on the unit, social with peers, attending groups. No side effects with medications. Medication Compliance: Yes Review of Systems Review of Systems No significant back pain or bowel bladder difficulties Constitutional: Reports no additional constitutional complaints, Denies chills, Denies fever(s), Denies night sweats and Reports weakness Eyes: Reports no additional eye complaints, Denies blurry vision, Denies change in vision, Denies diplopia, Denies eye discharge, Denies loss of vision and Denies eye pain Denies dizziness Cardiovascular: Reports no additional cardiovascular complaints, Denies chest pain, Denies lightheadedness, Denies Loss of Consciousness and Denies dyspnea Respiratory: Reports no additional respiratory complaints and Denies dyspnea Gastrointestinal: Reports no additional gastrointestinal complaints, Denies abdominal pain, Denies melena, Denies hematochezia, Denies change in bowel habits and Denies change in stool character Musculoskeletal: Reports no additional musculoskeletal complaints, Reports abnormal gait (per her baseline), Denies numbness and Denies tingling Reports abnormal gait (per her baseline), Denies dizziness, Denies loss of vision, Denies numbness, Denies tingling and Reports weakness Psychiatric: Reports no additional psychiatric complaints Endocrine: Reports no additional endocrine complaints Hematologic/Lymphatic: Reports no additional hematologic/lymphatic complaints Allergic/Immunologic: Reports no additional allergic/immunologic complaints Mental Status Exam Mental Status Exam Narrative: Appearance: wearing scrub pants, bothered by involuntary movement of both legs. Behavior: cooperative Psychomotor: lower legs constant, involuntary movement Speech: clear, normal rate/rhythm, volume, spontaneous TP: linear TC: worried about involuntary movement and how much they are affecting her gait. Mood: it hurts Affect: congruent SI: denies HI: denies VH/AH: no overt signs Delusions: none Insight/judgment: fair x 2. Memory/cog: alert, oriented x 3. Diagnostics Vital Signs (24Hr): Vital Signs - 24 hr 06/01/24 14:50 06/01/24 20:00 06/01/24 20:50 Temperature 97.7 F Pulse Rate 109 H 76 76 Respiratory Rate 18 Blood Pressure 113/78 137/75 137/75 Pulse Oximetry 97 Oxygen Delivery Method Room Air 06/02/24 08:03 Temperature Pulse Rate 83 Respiratory Rate Blood Pressure 108/68 Pulse Oximetry Oxygen Delivery Method BMI result Body Mass Index 26.6 Labs 05/22/24 19:13 05/29/24 18:24 Imaging Radiology Impressions: ITS Impressions Head CT 06/01/24 15:12 IMPRESSION: 1. No acute intracranial abnormality. 2. 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 3. Mild changes of small vessel ischemia. Electronically signed by: Gregory El MD 06/01/2024 04:13 PM EDT RP Medications Medications Current Medications Acetaminophen (Acetaminophen 325 Mg Tablet) 650 mg PO Q6H PRN PRN Reason: Headache/Pain, Scale 1-10 Last Admin: 05/30/24 22:17 Dose: 650 mg Al Hydroxide/Mg Hydroxide (Magnesium Hydrox/Alum Hydrox 30 Ml Oral.Susp) 30 ml PO Q6H PRN PRN Reason: Heartburn/Nausea Albuterol Sulfate (Albuterol Sulfate 90 Mcg 8 Gm Inhaler) 1 puff INHALE RQ6H PRN PRN Reason: wheezing/short of breath Ascorbic Acid (Ascorbic Acid 250 Mg Tablet) 250 mg PO DAILY [facility] Last Admin: 06/02/24 08:03 Dose: 250 mg Aspirin (Aspirin Enteric Coated 81 Mg Tablet.Dr) 81 mg PO DAILY [facility] Last Admin: 06/02/24 08:03 Dose: 81 mg Diazepam (Diazepam 2 Mg Tablet) 3 mg PO TID [facility] Last Admin: 06/02/24 08:27 Dose: 3 mg Ferrous Sulfate (Ferrous Sulfate 300 Mg/5 Ml Liquid) 300 mg PO DAILY [facility] Last Admin: 06/02/24 08:04 Dose: 300 mg Ibuprofen (Ibuprofen 600 Mg Tablet) 600 mg PO Q6H PRN PRN Reason: Pain, Mild (Pain Scale 1-3) Last Admin: 05/28/24 15:01 Dose: 600 mg Magnesium Hydroxide (Milk Of Magnesia 30 Ml Oral.Susp) 30 ml PO DAILY PRN PRN Reason: Constipation Mirtazapine (Mirtazapine 15 Mg Tablet) 15 mg PO BEDTIME [facility] Last Admin: 06/01/24 20:50 Dose: 15 mg Multivitamins/Vitamin C (Multivitamin Tablet) 1 tab PO DAILY [facility] Last Admin: 06/02/24 08:03 Dose: 1 tab Propranolol HCl (Propranolol Hcl 10 Mg Tablet) 5 mg PO TID [facility]; Protocol Last Admin: 06/02/24 08:03 Dose: 5 mg Trazodone HCl (Trazodone Hcl 50 Mg Tablet) 50 mg PO BEDTIME MRX1 PRN PRN Reason: Insomnia Allergies Allergies Allergy/AdvReac Type Severity Reaction Status Date / Time latex [Latex] Allergy Mild THROAT Verified 05/22/24 17:27 CLOSES Sulfa (Sulfonamide Allergy Mild SEVERE Verified 05/22/24 17:27 Antibiotics) HEADACHE, [Sulfa (Sulfonamides)] itching penicillin V Allergy Unknown nauseau,vom Verified 05/22/24 17:27 iting,sob Latex Gloves Allergy Unknown anaphylaxis Uncoded 05/22/24 17:27 Assessment & Plan Assessment & Plan (1) Bipolar disorder with depression: Status: Acute Code(s): F31.9 - Bipolar disorder, unspecified (2) Tardive dyskinesia: Status: Acute Code(s): G24.01 - Drug induced subacute dyskinesia Assessment and Plan: Rule out tardive akathisia Plan Ms. Ramos is a 68 year-old woman, came to [facility] after assessment for suicidality in context of recent relapsed on oxycodone. She had also reported increase difficulty walking, involuntary movements of lower extremity. She was seen by neurology who recommends tx for tardive dyskenisia. She is currently off latuda. Plan initially was to refer patient to OP neurology and follow up with psychiatry. However, pt reports involuntary movements are severe, painful and difficult to tolerate. No SI or HI. No psychosis or delusions. However, medication management for both psychiatric medications and movement disorder may be better and faster managed if patient goes inpatient psych. PLAN 06/01- Will start remeron for depression- given that no hx of psychosis or delusions. continue diazepam 3mg po TID. Add propanolol 5mg po TID. head CT- given cognitive impairments. 06/02 continue tx. less what seems to be akathisia. Reason for continued inpatient stay Substantial Risk for: inability to function Time Spent With Patient Time: Total time managing care of this patient today ____ minutes.
[2024-06-02 15:05] VITALS: BP 113/67; PULSE 68
[2024-06-02 20:00] VITALS: BP 119/58; PULSE 73; RESP 18; TEMP 36.3; O2SAT 96
[2024-06-02] MEDS: Mirtazapine 15 MG TABLET PO (20:38)
[2024-06-03 07:45] VITALS: BP 111/60; PULSE 70; RESP 14; TEMP 36.4; O2SAT 100
[2024-06-03] MEDS: diazePAM 2 MG TABLET 3 MG PO ×3 (08:11→20:46)
[2024-06-03] MEDS: Ferrous Sulfate 300 MG/5 ML LIQUID PO (08:11)
[2024-06-03] MEDS: Ascorbic Acid 250 MG TABLET PO (08:12)
[2024-06-03] MEDS: Aspirin Enteric Coated 81 MG TABLET.DR PO (08:12)
[2024-06-03 08:13] VITALS: BP 111/60; PULSE 70
[2024-06-03] MEDS: Propranolol HCL 10 MG TABLET 5 MG PO ×3 (08:13→20:45)
[2024-06-03] MEDS: Multivitamin TABLET 1 TAB PO (08:15)
--- NOTE | 2024-06-03 13:16 | P.PNPSI_ITS ---
Subjective Subjective Date of Service: 06/03/24 Reason For Visit: movement d/o interaction with psych meds Subjective Notes: Conditional Voluntary Interim History: Pt slept through the night. BP has been stable. Pt reports much less movement of legs and feels much calmer. She denies SI/HI. She is sleeping through the night. No psychosis or delusions. She has been visible on the unit, social with peers, attending groups. No side effects with medications. Review of Systems Review of Systems No significant back pain or bowel bladder difficulties Constitutional: Reports no additional constitutional complaints, Denies chills, Denies fever(s), Denies night sweats and Reports weakness Eyes: Reports no additional eye complaints, Denies blurry vision, Denies change in vision, Denies diplopia, Denies eye discharge, Denies loss of vision and Denies eye pain Denies dizziness Cardiovascular: Reports no additional cardiovascular complaints, Denies chest pain, Denies lightheadedness, Denies Loss of Consciousness and Denies dyspnea Respiratory: Reports no additional respiratory complaints and Denies dyspnea Gastrointestinal: Reports no additional gastrointestinal complaints, Denies abdominal pain, Denies melena, Denies hematochezia, Denies change in bowel habits and Denies change in stool character Musculoskeletal: Reports no additional musculoskeletal complaints, Reports abnormal gait (per her baseline), Denies numbness and Denies tingling Reports abnormal gait (per her baseline), Denies dizziness, Denies loss of vision, Denies numbness, Denies tingling and Reports weakness Psychiatric: Reports no additional psychiatric complaints Endocrine: Reports no additional endocrine complaints Hematologic/Lymphatic: Reports no additional hematologic/lymphatic complaints Allergic/Immunologic: Reports no additional allergic/immunologic complaints Mental Status Exam Mental Status Exam Narrative: Appearance: wearing scrub pants, bothered by involuntary movement of both legs. Behavior: cooperative Psychomotor: lower legs constant, involuntary movement Speech: clear, normal rate/rhythm, volume, spontaneous TP: linear TC: worried about involuntary movement and how much they are affecting her gait. Mood: it hurts Affect: congruent SI: denies HI: denies VH/AH: no overt signs Delusions: none Insight/judgment: fair x 2. Memory/cog: alert, oriented x 3. Diagnostics Vital Signs (24Hr): Vital Signs - 24 hr 06/02/24 15:05 06/02/24 20:00 06/03/24 07:45 Temperature 97.4 F 97.6 F Pulse Rate 68 73 70 Respiratory Rate 18 14 Blood Pressure 113/67 119/58 L 111/60 Pulse Oximetry 96 100 Oxygen Delivery Method Room Air Room Air 06/03/24 08:13 Temperature Pulse Rate 70 Respiratory Rate Blood Pressure 111/60 Pulse Oximetry Oxygen Delivery Method BMI result Body Mass Index 26.6 Labs 05/22/24 19:13 05/29/24 18:24 Imaging Radiology Impressions: ITS Impressions Head CT 06/01/24 15:12 IMPRESSION: 1. No acute intracranial abnormality. 2. 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 3. Mild changes of small vessel ischemia. Electronically signed by: Gregory El MD 06/01/2024 04:13 PM EDT RP Medications Medications Current Medications Acetaminophen (Acetaminophen 325 Mg Tablet) 650 mg PO Q6H PRN PRN Reason: Headache/Pain, Scale 1-10 Last Admin: 05/30/24 22:17 Dose: 650 mg Al Hydroxide/Mg Hydroxide (Magnesium Hydrox/Alum Hydrox 30 Ml Oral.Susp) 30 ml PO Q6H PRN PRN Reason: Heartburn/Nausea Albuterol Sulfate (Albuterol Sulfate 90 Mcg 8 Gm Inhaler) 1 puff INHALE RQ6H PRN PRN Reason: wheezing/short of breath Ascorbic Acid (Ascorbic Acid 250 Mg Tablet) 250 mg PO DAILY [facility] Last Admin: 06/03/24 08:12 Dose: 250 mg Aspirin (Aspirin Enteric Coated 81 Mg Tablet.Dr) 81 mg PO DAILY [facility] Last Admin: 06/03/24 08:12 Dose: 81 mg Diazepam (Diazepam 2 Mg Tablet) 3 mg PO TID [facility] Last Admin: 06/03/24 08:11 Dose: 3 mg Ferrous Sulfate (Ferrous Sulfate 300 Mg/5 Ml Liquid) 300 mg PO DAILY [facility] Last Admin: 06/03/24 08:11 Dose: 300 mg Magnesium Hydroxide (Milk Of Magnesia 30 Ml Oral.Susp) 30 ml PO DAILY PRN PRN Reason: Constipation Mirtazapine (Mirtazapine 15 Mg Tablet) 15 mg PO BEDTIME [facility] Last Admin: 06/02/24 20:38 Dose: 15 mg Multivitamins/Vitamin C (Multivitamin Tablet) 1 tab PO DAILY [facility] Last Admin: 06/03/24 08:15 Dose: 1 tab Propranolol HCl (Propranolol Hcl 10 Mg Tablet) 5 mg PO TID [facility]; Protocol Last Admin: 06/03/24 08:13 Dose: 5 mg Trazodone HCl (Trazodone Hcl 50 Mg Tablet) 50 mg PO BEDTIME MRX1 PRN PRN Reason: Insomnia Allergies Allergies Allergy/AdvReac Type Severity Reaction Status Date / Time latex [Latex] Allergy Mild THROAT Verified 05/22/24 17:27 CLOSES Sulfa (Sulfonamide Allergy Mild SEVERE Verified 05/22/24 17:27 Antibiotics) HEADACHE, [Sulfa (Sulfonamides)] itching penicillin V Allergy Unknown nauseau,vom Verified 05/22/24 17:27 iting,sob Latex Gloves Allergy Unknown anaphylaxis Uncoded 05/22/24 17:27 Assessment & Plan Assessment & Plan (1) Bipolar disorder with depression: Status: Acute Code(s): F31.9 - Bipolar disorder, unspecified (2) Tardive dyskinesia: Status: Acute Code(s): G24.01 - Drug induced subacute dyskinesia Assessment and Plan: Rule out tardive akathisia Plan Ms. Ramos is a 68 year-old woman, came [place] [facility] assessment for suicidality in context of recent relapsed on oxycodone. She had also reported increase difficulty walking, involuntary movements of lower extremity. She was seen by neurology who recommends tx for tardive dyskenisia. She is currently off latuda. Plan initially was to refer patient to OP neurology and follow up with psychiatry. However, pt reports involuntary movements are severe, painful and difficult to tolerate. No SI or HI. No psychosis or delusions. However, medication management for both psychiatric medications and movement disorder may be better and faster managed if patient goes inpatient psych. PLAN 06/01- Will start remeron for depression- given that no hx of psychosis or delusions. continue diazepam 3mg po TID. Add propanolol 5mg po TID. head CT- given cognitive impairments. 06/02 continue tx. less what seems to be akathisia. 06/03 continue tx. Reason for continued inpatient stay Substantial Risk for: inability to function Time Spent With Patient Time: Total time managing care of this patient today ____ minutes.
[2024-06-03 15:03] VITALS: BP 105/66; PULSE 77
[2024-06-03] MEDS: Magnesium Hydrox/Alum Hydrox 30 ML ORAL.SUSP PO (17:13)
[2024-06-03 20:00] VITALS: BP 110/69; PULSE 78; RESP 16; TEMP 36.1; O2SAT 100
[2024-06-03 20:45] VITALS: BP 110/69; PULSE 78
[2024-06-03] MEDS: Mirtazapine 15 MG TABLET PO (20:46)
[2024-06-04 07:00] VITALS: BMI 27.7
[2024-06-04 07:55] VITALS: BP 117/76; PULSE 89; RESP 18; TEMP 36.4; O2SAT 100
[2024-06-04] MEDS: Ferrous Sulfate 300 MG/5 ML LIQUID PO (08:03)
[2024-06-04] MEDS: Aspirin Enteric Coated 81 MG TABLET.DR PO (08:03)
[2024-06-04] MEDS: diazePAM 2 MG TABLET 3 MG PO ×3 (08:04→20:31)
[2024-06-04] MEDS: Multivitamin TABLET 1 TAB PO (08:04)
[2024-06-04] MEDS: Ascorbic Acid 250 MG TABLET PO (08:04)
[2024-06-04] MEDS: Propranolol HCL 10 MG TABLET 5 MG PO ×3 (08:04→20:29)
--- NOTE | 2024-06-04 10:41 | HO.PSYCHPN ---
Subjective Subjective Date of Service: 06/04/24 Reason For Visit: movement d/o interaction with psych meds Subjective Notes: Conditional Voluntary Interim History: Pt slept through the night. BP has been stable. She reports she feels much calmer, and happier, She is looking forward to go to her nieces' wedding in few months. Pt reports much less movement of legs and feels much calmer. She denies SI/HI. She is sleeping through the night. No psychosis or delusions. She has been visible on the unit, social with peers, attending groups. No side effects with medications. Review of Systems Review of Systems No significant back pain or bowel bladder difficulties Constitutional: Reports no additional constitutional complaints, Denies chills, Denies fever(s), Denies night sweats and Reports weakness Eyes: Reports no additional eye complaints, Denies blurry vision, Denies change in vision, Denies diplopia, Denies eye discharge, Denies loss of vision and Denies eye pain Denies dizziness Cardiovascular: Reports no additional cardiovascular complaints, Denies chest pain, Denies lightheadedness, Denies Loss of Consciousness and Denies dyspnea Respiratory: Reports no additional respiratory complaints and Denies dyspnea Gastrointestinal: Reports no additional gastrointestinal complaints, Denies abdominal pain, Denies melena, Denies hematochezia, Denies change in bowel habits and Denies change in stool character Musculoskeletal: Reports no additional musculoskeletal complaints, Reports abnormal gait (per her baseline), Denies numbness and Denies tingling Reports abnormal gait (per her baseline), Denies dizziness, Denies loss of vision, Denies numbness, Denies tingling and Reports weakness Psychiatric: Reports no additional psychiatric complaints Endocrine: Reports no additional endocrine complaints Hematologic/Lymphatic: Reports no additional hematologic/lymphatic complaints Allergic/Immunologic: Reports no additional allergic/immunologic complaints Mental Status Exam Mental Status Exam Narrative: Appearance: wearing scrub pants, bothered by involuntary movement of both legs. Behavior: cooperative Psychomotor: lower legs constant, involuntary movement Speech: clear, normal rate/rhythm, volume, spontaneous TP: linear TC: worried about involuntary movement and how much they are affecting her gait. Mood: it hurts Affect: congruent SI: denies HI: denies VH/AH: no overt signs Delusions: none Insight/judgment: fair x 2. Memory/cog: alert, oriented x 3. Diagnostics Vital Signs (24Hr): Vital Signs - 24 hr 06/03/24 15:03 06/03/24 20:00 06/03/24 20:45 Temperature 97 F Pulse Rate 77 78 78 Respiratory Rate 16 Blood Pressure 105/66 110/69 110/69 Pulse Oximetry 100 Oxygen Delivery Method Room Air 06/04/24 07:55 Temperature 97.6 F Pulse Rate 89 Respiratory Rate 18 Blood Pressure 117/76 Pulse Oximetry 100 Oxygen Delivery Method Room Air BMI result Body Mass Index 26.6 Labs 05/22/24 19:13 05/29/24 18:24 Imaging Radiology Impressions: ITS Impressions Head CT 06/01/24 15:12 IMPRESSION: 1. No acute intracranial abnormality. 2. 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 3. Mild changes of small vessel ischemia. Electronically signed by: Gregory El MD 06/01/2024 04:13 PM EDT RP Medications Medications Current Medications Acetaminophen (Acetaminophen 325 Mg Tablet) 650 mg PO Q6H PRN PRN Reason: Headache/Pain, Scale 1-10 Last Admin: 05/30/24 22:17 Dose: 650 mg Al Hydroxide/Mg Hydroxide (Magnesium Hydrox/Alum Hydrox 30 Ml Oral.Susp) 30 ml PO Q6H PRN PRN Reason: Heartburn/Nausea Last Admin: 06/03/24 17:13 Dose: 30 ml Albuterol Sulfate (Albuterol Sulfate 90 Mcg 8 Gm Inhaler) 1 puff INHALE RQ6H PRN PRN Reason: wheezing/short of breath Ascorbic Acid (Ascorbic Acid 250 Mg Tablet) 250 mg PO DAILY [facility] Last Admin: 06/04/24 08:04 Dose: 250 mg Aspirin (Aspirin Enteric Coated 81 Mg Tablet.Dr) 81 mg PO DAILY [facility] Last Admin: 06/04/24 08:03 Dose: 81 mg Diazepam (Diazepam 2 Mg Tablet) 3 mg PO TID [facility] Last Admin: 06/04/24 08:04 Dose: 3 mg Ferrous Sulfate (Ferrous Sulfate 300 Mg/5 Ml Liquid) 300 mg PO DAILY [facility] Last Admin: 06/04/24 08:03 Dose: 300 mg Magnesium Hydroxide (Milk Of Magnesia 30 Ml Oral.Susp) 30 ml PO DAILY PRN PRN Reason: Constipation Mirtazapine (Mirtazapine 15 Mg Tablet) 15 mg PO BEDTIME [facility] Last Admin: 06/03/24 20:46 Dose: 15 mg Multivitamins/Vitamin C (Multivitamin Tablet) 1 tab PO DAILY [facility] Last Admin: 06/04/24 08:04 Dose: 1 tab Propranolol HCl (Propranolol Hcl 10 Mg Tablet) 5 mg PO TID [facility]; Protocol Last Admin: 06/04/24 08:04 Dose: 5 mg Trazodone HCl (Trazodone Hcl 50 Mg Tablet) 50 mg PO BEDTIME MRX1 PRN PRN Reason: Insomnia Allergies Allergies Allergy/AdvReac Type Severity Reaction Status Date / Time latex [Latex] Allergy Mild THROAT Verified 05/22/24 17:27 CLOSES Sulfa (Sulfonamide Allergy Mild SEVERE Verified 05/22/24 17:27 Antibiotics) HEADACHE, [Sulfa (Sulfonamides)] itching penicillin V Allergy Unknown nauseau,vom Verified 05/22/24 17:27 iting,sob Latex Gloves Allergy Unknown anaphylaxis Uncoded 05/22/24 17:27 Assessment & Plan Assessment & Plan (1) Bipolar disorder with depression: Status: Acute Code(s): F31.9 - Bipolar disorder, unspecified (2) Tardive akathisia: Status: Acute Code(s): G25.71 - Drug induced akathisia Plan Ms. Ramos is a 68 year-old woman, came to [facility] [facility] after assessment for suicidality in context of recent relapsed on oxycodone. She had also reported increase difficulty walking, involuntary movements of lower extremity. She was seen by neurology who recommends tx for tardive dyskenisia. She is currently off latuda. Plan initially was to refer patient to OP neurology and follow up with psychiatry. However, pt reports involuntary movements are severe, painful and difficult to tolerate. No SI or HI. No psychosis or delusions. However, medication management for both psychiatric medications and movement disorder may be better and faster managed if patient goes inpatient psych. PLAN 06/01- Will start remeron for depression- given that no hx of psychosis or delusions. continue diazepam 3mg po TID. Add propanolol 5mg po TID. head CT- given cognitive impairments. 06/02 continue tx. less what seems to be akathisia. 06/03 continue tx. 06/04 continue tx. dc 06/05/2024 Reason for continued inpatient stay Substantial Risk for: stable for discharge Time Spent With Patient Time: Total time managing care of this patient today ____ minutes.
[2024-06-04 14:22] VITALS: BP 127/74; PULSE 74
[2024-06-04 20:00] VITALS: BP 93/50; PULSE 67; RESP 16; TEMP 36.1; O2SAT 98
[2024-06-04 20:29] VITALS: BP 107/66; PULSE 68
[2024-06-04] MEDS: Mirtazapine 15 MG TABLET PO (20:29)
[2024-06-05 07:55] VITALS: BP 146/66; PULSE 78; RESP 18; TEMP 36.2; O2SAT 100
[2024-06-05] MEDS: Propranolol HCL 10 MG TABLET 5 MG PO (08:15)
[2024-06-05] MEDS: diazePAM 2 MG TABLET 3 MG PO (08:15)
[2024-06-05] MEDS: Ferrous Sulfate 300 MG/5 ML LIQUID PO (08:15)
[2024-06-05] MEDS: Aspirin Enteric Coated 81 MG TABLET.DR PO (08:18)
[2024-06-05] MEDS: Multivitamin TABLET 1 TAB PO (08:18)
[2024-06-05] MEDS: Ascorbic Acid 250 MG TABLET PO (08:18)
--- NOTE | 2024-06-05 09:04 | HO.PSYCHPN ---
Subjective Subjective Reason For Visit: movement d/o interaction with psych meds Diagnostics Vital Signs (24Hr): Vital Signs - 24 hr 06/04/24 14:22 06/04/24 20:00 06/04/24 20:29 Temperature 97 F Pulse Rate 74 67 68 Respiratory Rate 16 Blood Pressure 127/74 93/50 L 107/66 Pulse Oximetry 98 Oxygen Delivery Method Room Air 06/05/24 07:55 Temperature 97.2 F Pulse Rate 78 Respiratory Rate 18 Blood Pressure 146/66 H Pulse Oximetry 100 Oxygen Delivery Method Room Air BMI result Body Mass Index 26.6 Labs 05/22/24 19:13 05/29/24 18:24 Imaging Radiology Impressions: ITS Impressions Head CT 06/01/24 15:12 IMPRESSION: 1. No acute intracranial abnormality. 2. 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 3. Mild changes of small vessel ischemia. Electronically signed by: Gregory El MD 06/01/2024 04:13 PM EDT RP Medications Medications Current Medications Acetaminophen (Acetaminophen 325 Mg Tablet) 650 mg PO Q6H PRN PRN Reason: Headache/Pain, Scale 1-10 Last Admin: 05/30/24 22:17 Dose: 650 mg Al Hydroxide/Mg Hydroxide (Magnesium Hydrox/Alum Hydrox 30 Ml Oral.Susp) 30 ml PO Q6H PRN PRN Reason: Heartburn/Nausea Last Admin: 06/03/24 17:13 Dose: 30 ml Albuterol Sulfate (Albuterol Sulfate 90 Mcg 8 Gm Inhaler) 1 puff INHALE RQ6H PRN PRN Reason: wheezing/short of breath Ascorbic Acid (Ascorbic Acid 250 Mg Tablet) 250 mg PO DAILY [facility] Last Admin: 06/05/24 08:18 Dose: 250 mg Aspirin (Aspirin Enteric Coated 81 Mg Tablet.Dr) 81 mg PO DAILY [facility] Last Admin: 06/05/24 08:18 Dose: 81 mg Diazepam (Diazepam 2 Mg Tablet) 3 mg PO TID [facility] Last Admin: 06/05/24 08:15 Dose: 3 mg Ferrous Sulfate (Ferrous Sulfate 300 Mg/5 Ml Liquid) 300 mg PO DAILY [facility] Last Admin: 06/05/24 08:15 Dose: 300 mg Magnesium Hydroxide (Milk Of Magnesia 30 Ml Oral.Susp) 30 ml PO DAILY PRN PRN Reason: Constipation Mirtazapine (Mirtazapine 15 Mg Tablet) 15 mg PO BEDTIME [facility] Last Admin: 06/04/24 20:29 Dose: 15 mg Multivitamins/Vitamin C (Multivitamin Tablet) 1 tab PO DAILY [facility] Last Admin: 06/05/24 08:18 Dose: 1 tab Propranolol HCl (Propranolol Hcl 10 Mg Tablet) 5 mg PO TID [facility]; Protocol Last Admin: 06/05/24 08:15 Dose: 5 mg Trazodone HCl (Trazodone Hcl 50 Mg Tablet) 50 mg PO BEDTIME MRX1 PRN PRN Reason: Insomnia Allergies Allergies Allergy/AdvReac Type Severity Reaction Status Date / Time latex [Latex] Allergy Mild THROAT Verified 05/22/24 17:27 CLOSES Sulfa (Sulfonamide Allergy Mild SEVERE Verified 05/22/24 17:27 Antibiotics) HEADACHE, [Sulfa (Sulfonamides)] itching penicillin V Allergy Unknown nauseau,vom Verified 05/22/24 17:27 iting,sob Latex Gloves Allergy Unknown anaphylaxis Uncoded 05/22/24 17:27 Assessment & Plan Assessment & Plan (1) Bipolar disorder with depression: Status: Acute Code(s): F31.9 - Bipolar disorder, unspecified (2) Tardive akathisia: Status: Acute Code(s): G25.71 - Drug induced akathisia Plan Ms. Ramos is a 68 year-old woman, came to [facility] [place] [facility] after assessment for suicidality in context of recent relapsed on oxycodone. She had also reported increase difficulty walking, involuntary movements of lower extremity. She was seen by neurology who recommends tx for tardive dyskenisia. She is currently off latuda. Plan initially was to refer patient to OP neurology and follow up with psychiatry. However, pt reports involuntary movements are severe, painful and difficult to tolerate. No SI or HI. No psychosis or delusions. However, medication management for both psychiatric medications and movement disorder may be better and faster managed if patient goes inpatient psych. PLAN 06/01- Will start remeron for depression- given that no hx of psychosis or delusions. continue diazepam 3mg po TID. Add propanolol 5mg po TID. head CT- given cognitive impairments. 06/02 continue tx. less what seems to be akathisia. 06/03 continue tx. 06/04 continue tx. dc 06/05/2024 Time Spent With Patient Time: Total time managing care of this patient today ____ minutes.
--- NOTE | 2024-06-05 09:29 | P.DS_ITS ---
DS: Providers Provider Date of Service: 06/05/24 Date of admission: 05/29/24 16:08 Date of discharge: 06/05/24 Primary care physician: Unknown Physician Discharging clinician: Denisa Erickson DS: Diagnosis Discharge Diagnosis (1) Bipolar disorder with depression: Status: Acute (2) Tardive akathisia: Status: Acute DS: Medications Discharge Medications Home Medications: Home Medications ?Medication ?Instructions ?Recorded ?Confirmed aspirin 81 mg tablet,delayed 81 mg PO DAILY 05/22/24 05/22/24 release hydroxyzine HCl 50 mg tablet 50 mg PO TID anxiety 05/22/24 05/22/24 loperamide 2 mg capsule 4 mg PO DAILY diarrhea 05/22/24 05/22/24 lurasidone 40 mg tablet 40 mg PO BID@0700,1200 05/22/24 05/22/24 [id number] 45 mg-folic 1 cap PO DAILY 05/22/24 05/22/24 acid 800 mcg-vit K 120 mcg capsule (Bariatric Multivitamins) Mental Status Exam Mental Status Exam Narrative: Appearance:casually groomed, good hygiene, in NAD, ambulating with walker Behavior: cooperative Psychomotor: lower legs constant, involuntary movement Speech: clear, normal rate/rhythm, volume, spontaneous TP: linear TC:looking forward to go home soon Mood: much better Affect: congruent, brightens up, non labile. SI: denies HI: denies VH/AH: no overt signs Delusions: none Insight/judgment: fair x 2. Memory/cog: alert, oriented x 3. Data Data Completed and Pending Completed studies during hospitalization [Text1]: 05/29/24 18:24 Sodium 142 Potassium 3.7 Chloride 109 H Carbon Dioxide 26 Anion Gap 11 L BUN 13 Creatinine 0.80 Estim Creat Clear Calc 61.6 Estimated GFR > 60 Random Glucose 124 H Calcium 9.6 D Total Bilirubin 0.7 AST 49 H ALT 28 Alkaline Phosphatase 85 Total Protein 6.0 L Albumin 3.8 Imaging Diagnostic Imaging Impressions Head CT 06/01/24 15:12 IMPRESSION: 1. No acute intracranial abnormality. 2. 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 3. Mild changes of small vessel ischemia. Electronically signed by: Gregory El MD 06/01/2024 04:13 PM EDT DS: Summary Hospital Course Hospital Course: Mrs. Ramos is a 68 year-old woman with hx of Bipolar Disorder who [place] came [place] [facility] due to reports of Si in context of recent relapsed on oxycodone. She had denied SI/HI. However, pt has been presenting with dyskinesia of lower extremity apparently for 3-4 months but worsening recently. She was seen by neurology who thought this is tardive dyskinesia. She is off latuda for bipolar disorder. Initially plan was for patient to return back home and work with OP neurology in combination to psychiatrist. However, due to severity of movement disorder symptoms patient agree to voluntarily come to the unit. She has received some doses of diazepam with good effect. On the unit, pt presents with constant movement of both legs from thigh down to feet. When sitting down, patient constantly tapping feet. She reports it is very distressful and painful as she can't stop the movements. She reports difficulty sleeping although movements do stop when she is asleep. She reports feeling anxious. She denies SI/HI. No overt psychosis or delusions noted. She's had one previous psychiatric admission back in 12/2023 after suicide attempt via OD. She denies any prior psychiatric admission. She reports long hx of substance use but has been in remission for some years. She denies alcohol use which was reported by care team. She has been in the ED for 3 days without any signs of alcohol withdrawal symptoms. She does report using cannabis, which she states helps with involuntary movements. Past Psychiatric History: Inpt: [facility] back in 12/2023 after intentional OD on medications HOSPITAL COURSE On the unit, pt was admitted on a CV and placed on 15 minutes checks for safety. He presented with ongoing, hyperkinetic movements of both legs. She also described feeling anxious and restless due to leg movements. She reported pain on both legs. She had been seen by neurology while in the ED, who thought movement related to tardive dyskenisia. However, as we continue to observe patient it appears to have tardive akathisia. She was started on combination of beta sabra- propanolol and diazepam which significantly decreased movements, restlessness and leg pain. Certainly, antipsychotics, including latuda which had been recently increased to 45mg po TID, worsen movement disorder. Gathering more information about her psychiatric history from daughter, and patient, there is no history of psychosis, no clear episodes of doreen or hypomania. She does have extensive hx of trauma and depression. She has only had one prior psychiatric admission in her life time last year for depression and suicidality when she was started on latuda. We discussed risks, benefits and alternative treatment options, started remeron to address depression. Advise to avoid antipsychotics to treat her mood. During the hospital stay, she was psychiatrically stable in terms of no overt depression nor psychosis nor HI nor SI. She presented as future oriented looking forward to continue tx, going to family member's wedding. Her affect was bright, non labile. She reported significant relief physically and emotionally as movement disorder had decreased increasing her ability to walk more steady and overall quality of life. She was sleeping and eating well. She was visible on the unit, social with select peers. No SI/HI. No psychosis or delusions. Family meeting to discuss medication changes and findings. Status at Discharge Cognitive/behavioral status at discharge: Pt with brighter, non labile affect. No SI/HI. No psychosis or delusions. Sleeping and eating well. no behavioral concerns. taking medications as prescribed. Functional status at discharge: independent ambulation Overall status at discharge: patient is not back to baseline Time Spent with Patient Time attestation: Total time managing care of this patient today __40__ minutes. Discharge Plan Discharge Anticipated Discharge Date/Time: 06/05/24 11:01 Patient Disposition: Home, Self-Care Discharge Diagnosis: Bipolar type 2 Disorder Referrals: Kandi Stringer [facility], (therapist) [Other] - 06/12/24 9:00 am (Kandi was unable to change the time for your meeting this week but your next week time 06/12/24 at 9:00 Am is still bar up. The appointment will be via telehelath and if you have any questions or need to reschedule please give her a call at the number listed.) Mirian Zepeda, SALES DEVELOPMENT MANAGER [Nurse Practitioner] - 07/03/24 2:20 pm (the next appointment Mirian has open is July 03 at 2:20pm You have been put on a cancelation list so if someone cancels you'll get there spot. I've also left a message with your [facility] program social worked to see if they can get you seen sooner.) Loan Arias, ROSHNI [Nurse Practitioner] - 1 Week ([facility] will reach out to you to make an aftercare appointment for Loan Arias. If they don't reach out to you please call your [employer]are[employer] thayer [employer], (social media sr strategy manager), . ) Discharge Medications: New acetaminophen 325 mg Tablet 650 mg PO Q6H PRN (Reason: Headache/Pain, Scale 1-10) Qty: 0 0RF aspirin 81 mg Tablet,Delayed Release (Dr/Ec) 81 mg PO DAILY Qty: 0 0RF propranolol 10 mg Tablet 5 mg PO TID Qty: 0 0RF Protocol: Hold for SBP/HR < HOLD for SBP < : 90 HOLD for HR < : 60 diazepam 2 mg Tablet 3 mg PO TID Qty: 0 0RF ascorbic acid (vitamin C) 250 mg Tablet 250 mg PO DAILY Qty: 0 0RF ferrous sulfate 300 mg (60 mg iron)/5 mL Liquid 300 mg PO DAILY Qty: 0 0RF mirtazapine 15 mg Tablet 15 mg PO BEDTIME Qty: 0 0RF albuterol sulfate [Ventolin HFA] 90 mcg/actuation Hfa Aerosol Inhaler 1 puff inhalation RQ6H PRN (Reason: wheezing/short of breath) Qty: 0 0RF Continued Bariatric Multivitamins 45 mg iron- 800 mcg-120 mcg Capsule 1 cap PO DAILY Discontinued loperamide 2 mg Capsule 4 mg PO DAILY hydroxyzine HCl 50 mg tablet 50 mg PO TID aspirin [Aspir-81] 81 mg Tablet,Delayed Release (Dr/Ec) 81 mg PO DAILY lurasidone 40 mg Tablet 40 mg PO BID@0700,1200 Rx Instructions: must administer with food (at least 350 calories) Discharge Orders: Discharge Order (Routine); Ordered 06/05/24 Ordered By: Denisa Erickson Diet: Regular diet Activity on Discharge: As tolerated Stand Alone Forms: Patient Portal Discharge page, Community Support Print Language: Guinean Care Plan Goals: 1. Maintain mood 2. No SI/HI 3. Less restlessness. Health Concerns: Follow up with PCP Plan of Treatment: 1. Take medications as prescribed 2. Go to nearest ED or call 911. Assessment: Pt with brighter affect, not labile. No SI/HI. No signs of psychosis or delusions. Sleeping and eating well. Discharge Date/Time: 06/05/24 12:15
== END 2024-06-05 12:15 | disposition home or self-care (01) | DRG 885 ==
LOC: HO.ED 05-26 13:43 → HO.PGERI 05-29 17:31
PROVIDERS: Physician Assistant; Physician Assistant Medical; Admitting Provider Social Worker; Emergency Provider Emergency Medicine; Visit Provider Social Worker
DX: F31.81 Bipolar II disorder (principal); R45.851 Suicidal ideations; I69.354 Hemiplegia and hemiparesis following cerebral infarction affecting left non-dominant side; G24.01 Drug induced subacute dyskinesia; T43.505A Adverse effect of unspecified antipsychotics and neuroleptics, initial encounter; Z20.822 Contact with and (suspected) exposure to COVID-19; Z87.891 Personal history of nicotine dependence; Z79.82 Long term (current) use of aspirin; Z79.899 Other long term (current) drug therapy
CPT/HCPCS: 0241U; 36415; 70450; 71045; 80048; 80053; 80307; 81003; 83735; 84443; 84484; 85025; 85610; 93005; 97162; 99285; S9485

== ENCOUNTER → 2024-05-22 17:40 | Outpatient (BNV) | payer MEDICARE, MEDICAID, SELFPAY | PROVIDERS: Emergency Provider Emergency Medicine; Visit Provider Internal Medicine Cardiovascular Disease | DX: I49.3 Ventricular premature depolarization (principal) | CPT/HCPCS: 93010 ==

== ENCOUNTER → 2024-05-22 17:40 | Outpatient (BNV) | payer MEDICARE, MEDICAID, SELFPAY | PROVIDERS: Emergency Provider Emergency Medicine; Visit Provider Radiology Diagnostic Radiology | DX: R53.1 Weakness (principal) | CPT/HCPCS: 71045 ==

== ENCOUNTER → 2024-05-22 18:06 | Outpatient (BNV) | payer OTHER, SELFPAY | PROVIDERS: Emergency Provider Emergency Medicine; Visit Provider Social Worker | DX: F31.9 Bipolar disorder, unspecified (principal); G24.01 Drug induced subacute dyskinesia | CPT/HCPCS: 90792; 99231; 99284 ==

== ENCOUNTER → 2024-05-22 18:06 | Outpatient (BNV) | payer OTHER, SELFPAY | PROVIDERS: Emergency Provider Emergency Medicine; Visit Provider Psychiatry & Neurology Neurology | DX: G24.01 Drug induced subacute dyskinesia (principal) | CPT/HCPCS: 99284 ==

== ENCOUNTER → 2024-05-26 14:24 | Outpatient (BNV) | payer OTHER, SELFPAY | PROVIDERS: Emergency Provider Emergency Medicine; Visit Provider Internal Medicine Cardiovascular Disease | DX: I49.3 Ventricular premature depolarization (principal) | CPT/HCPCS: 93010 ==

== ENCOUNTER 2024-05-29 16:08 | Outpatient (BNV) | payer OTHER, SELFPAY | END 2024-06-01 15:12 | PROVIDERS: Admitting Provider Social Worker; Emergency Provider Emergency Medicine; Visit Provider Radiology Diagnostic Radiology | DX: R41.3 Other amnesia (principal) | CPT/HCPCS: 70450 ==